=== PATIENT | female | born 1950 | race Caucasian/White ===

== ENCOUNTER → 2016-11-09 | Outpatient (CLI) | payer MEDICARE, OTHER ==
[~2016-11-09] MED LIST: ALPR.25T PO; AMOX1TAB10 PO; ASPI-586 PO; CATHETER FLUSH 10 ML SYR IV PRN; ESCT10T PO; ESTR10TA VG; HORMONE REPLACEMENT; METH4TAB PO
[2016-11-09 09:38] VITALS: BP 119/70
[2016-11-09 09:42] VITALS: BP 155/75
[2016-11-09 09:45] VITALS: BP 159/72
[2016-11-09 09:49] VITALS: BP 134/89
--- NOTE | 2016-11-10 08:59 | STRESS TEST ---
PROCEDURE PHYSICIAN: LEONARDO GAITAN DATE OF PROCEDURE: 11/09/2016 EXERCISE MYOVIEW STRESS TEST REPORT: REFERRING PHYSICIAN: Dr. Walton INDICATION FOR THE PROCEDURE: 1. Mitral regurgitation. 2. Left ventricular hypertrophy. BASELINE HEART RATE: 52 BASELINE BLOOD PRESSURE: 110/73 BASELINE EKG: Sinus rhythm with no ischemic changes. IN SUMMARY: The patient was injected with 10.76 mCi of technetium 99 Myoview and the resting images were obtained. Then the patient started exercising with a baseline heart rate, blood pressure and EKG mentioned above. At minute 5, the patient was injected with 31.9 mCi of technetium 99 Myoview. She was able to exercise for total of 6 minutes on standard Yfn protocol, achieving maximum heart rate of 137, which is 89% of maximum expected heart rate. With peak exercise level, EKG was showing [address] depression in 2, 3, aVF. Blood pressure was 165/85. During recovery, heart rate and blood pressure returned to baseline. EKG returned to baseline. The resting and stress images were reviewed and compared in the short axis, horizontal long axis, and vertical long axis views. Review of the images showed good radiotracer uptake with no significant ischemia or infarction on SPECT images. SSS is 0. TID value 1.05. On the gated images, the left ventricle appeared to be normal size with normal contractility. Calculated ejection fraction 61%. IN CONCLUSION: 1. Good exercise tolerance a total of 6 minutes on standard Yfn protocol. Total 7 METs achieving 89% of maximum expected heart rate. 2. Appropriate heart rate and blood pressure response to exercise, returned to baseline during recovery. 3. Nondiagnostic EKG changes with exercise, returned to baseline during recovery. 4. No ischemia or infarction on SPECT images. 5. Normal left ventricular size with normal contractility. Calculated ejection fraction 61%. Job ID: [id number] Dictated Date: 11/10/2016 08:10:09 Parking Enforcement Specialist Date: 11/10/2016 08:56:05 / barbara
== END ==
LOC: CARD 08:07
PROVIDERS: ATTEND Internal Medicine Cardiovascular Disease
DX: I51.7 Cardiomegaly (principal); I34.0 Nonrheumatic mitral (valve) insufficiency; Z82.3 Family history of stroke; Z82.49 Family history of ischemic heart disease and other diseases of the circulatory system
CPT/HCPCS: 78452; 93017

== ENCOUNTER 2017-01-07 15:47 | Emergency (ER) | payer MEDICARE, OTHER ==
[~2017-01-07] VITALS: Ht 172.7 cm; Wt 81.6 kg
[~2017-01-07 15:47] MED LIST changes: -ASPI-586 PO; -CATHETER FLUSH 10 ML SYR IV PRN
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
[2017-01-07] MEDS ORDERED: ASPI-586 PO (16:06)
[2017-01-07] MEDS ORDERED: TETANUS,DIPTH,PERTUSS P/F (BOOSTRIX) 0.5 ML VIAL IM ONE (16:45)
--- NOTE | 2017-01-07 17:17 | Diagnostic Imaging Report ---
PROCEDURE: CT head, face, and cervical spine without contrast. TECHNIQUE: Multiple contiguous axial images were obtained through the head, neck, and facial bones without the use of intravenous contrast. Sagittal and coronal reformations through the cervical spine and facial bones were also performed. INDICATION: Fall. Face injury. COMPARISON: None. FINDINGS: CT HEAD INCLUDING MAXILLOFACIAL: Soft tissue contusion/hematoma overlying the left maxilla. No fractures. No intracranial hemorrhage, mass effect, hydrocephalus or extra-axial fluid collections. No CT evidence of acute infarction. Mild generalized cerebral and cerebellar parenchymal volume loss is appropriate for age. Osseous structures are intact. Intracranial vascular calcifications. The visualized paranasal sinuses, mastoids and orbits are unremarkable. CT CERVICAL SPINE: Normal alignment. No fractures. Vertebral body heights are maintained. Mild scattered degenerative endplate changes and facet arthropathy. No evidence of high-grade spinal canal or neural foraminal narrowing. The visualized paravertebral soft tissues are unremarkable. IMPRESSION: No acute intracranial or cervical spine CT findings. Soft tissue hematoma overlying the left maxilla. No facial fractures. Dictated by: Dictated on workstation # [id number]
--- NOTE | 2017-01-07 17:30 | ED Fall/Injury ---
General Chief Complaint: Facial Problems Stated Complaint: FACE INJ Nursing Triage Note: PT STATES SHE TRIPPED AND FELL ON SIDEWALK INJURING L SIDE OF FACE. NO LOC. Source: patient Exam Limitations: no limitations History of Present Illness Time seen by provider: 16:20 Initial Comments Patient was walking on the sidewalk when she tripped and fell on her face onto concrete. She has significant abrasions and contusion to the left side of her face and scattered abrasions on her upper extremities. She denies any loss of consciousness or symptoms of concussion. She denies any neck pain. She takes aspirin 81 mg daily. There was no prodrome to her fall and she believes it was secondary to mechanical tripping. She denies any injury to her eye or affected vision. She is concerned about the possibility of glass in her facial wounds because her glasses did break and she removed some broken glass from her face. Occurred: just prior to arrival Allergies and Home Medications Allergies Coded Allergies: codeine (Verified Allergy, Unknown, 04/01/06) Uncoded Allergies: [id number] (E-MYCIN) (Allergy, Mild, 10/23/09) Home Medications Alprazolam 0.25 Mg Tablet 1 TAB PO PRN (Reported) Aspirin 81 Mg Tablet.dr 81 MG PO (Reported) Escitalopram Oxalate 10 Mg Tablet 0.5 EACH PO DAILY (Reported) Estradiol 10 Mcg Tablet 10 MCG VG UD (Reported) Constitutional: no symptoms reported Eyes: No Symptoms Reported Ears, Nose, Mouth, Throat: see HPI Respiratory: no symptoms reported Cardiovascular: no symptoms reported Gastrointestinal: no symptoms reported Genitourinary: no symptoms reported : No Musculoskeletal: no symptoms reported Skin: see HPI Psychiatric/Neurological: No Symptoms Reported Past Evtwhsr-Kwzazx-Wsfses Hx Patient Social History Alcohol Use: Rarely Uses Recreational Drug Use: No Smoking Status: Never a Smoker Recent Foreign Travel: No Contact w/Someone Who Travel: No Recent Infectious Disease Expo: No Recent Hopitalizations: No Immunizations Up To Date Tetanus Booster (TDap): More than 5yrs Date of Influenza Vaccine: Aug 21, 2013 Surgeries HX Surgeries: Yes Surgeries: Eye Surgery, Tonsillectomy Respiratory Hx Respiratory Disorders: No Cardiovascular Hx Cardiac Disorders: No Neurological Hx Neurological Disorders: No Gastrointestinal Hx Gastrointestinal Disorders: No Musculoskeletal Hx Musculoskeletal Disorders: No Endocrine Hx Endocrine Disorders: No HEENT HX ENT Disorders: No Cancer Hx Cancer: No Psychosocial Hx Psychiatric Problems: Yes Behavioral Health Disorders: Anxiety Integumentary HX Skin/Integumentary Disorder: No Physical Exam Vital Signs Vital Sign - Last 12Hours 01/07/17 15:59 Temp 97.1 Pulse 83 Resp 16 B/P 158/98 Pulse Ox 96 Capillary Refill : Less Than 3 Seconds General Appearance: WD/WN no apparent distress HEENT: PERRL/EOMI TMs normal pharynx normal other (there is contusion with swelling and abrasion to the left side of the face and beneath the nose. No dental injury identified. I appears unaffected. There is a shallow laceration around the inferior rim of the orbit. There is a vertical laceration on the mucosal surface of the left upper lip.) Neck: non-tender full range of motion supple normal inspection Cardiovascular: regular rate, rhythm no edema no murmur Respiratory: lungs clear normal breath sounds no respiratory distress no accessory muscle use Gastrointestinal: non tender soft Extremities: no pedal edema other (scattered abrasions over the upper extremities. No significant joint or bony pain or tenderness) Neurologic/Psychiatric: service clerk II-XII nml as tested no motor/sensory deficits alert normal mood/affect oriented x 3 Skin: normal color warm/dry other (see above) [place] Coma Score Best Eye Response: (4) Open Spontaneously Best Verbal Response: (5) Oriented Best Motor Response: (6) Obeys Commands [place] Total: 15 Progress/Results/Core Measures Results/Orders My Orders Orders-DAKOTA WOODS MD Ct Head/Face/Cervical Wo (01/07/17 16:33) Dipht,Pertuss(Acell),Tet Adult (Boostrix (01/07/17 16:45) Medications Given in ED Vital Signs/I&O Vital Sign - Last 12Hours 01/07/17 01/07/17 15:59 18:25 Temp 97.1 97.1 Pulse 83 83 Resp 16 16 B/P 158/98 Pulse Ox 96 96 Blood Pressure Mean: 118 Progress Note : Progress Note Patient was seen and examined. CT of the head, face, and cervical spine was ordered. No bony or intracranial injuries were identified. Patient was given a tetanus booster. Wounds were cleaned with water and Betasept. No foreign bodies were found in the facial bones. The shallow laceration on the left orbital rim was not amenable to approximation. The lip laceration did not require repair. We discussed dietary restrictions for the next few days to avoid particulate matter in the wound. Wounds were dressed with sterile gauze and antibiotic ointment prior to dismissal. Diagnostic Imaging Diagonstic Imaging: CT Plain Films/CT/US/NM/MRI: facial bones, c-spine, head Comments CT head, face, and cervical spine viewed by me and report reviewed. See report below: NAME: MARIELA LONG [facility] REC#: [id number] PT STATUS: REG ER : 1950 PHYSICIAN: DAKOTA WOODS MD ADMIT DATE: 01/07/17/ER Draft Date of Exam:01/07/17 CT HEAD/FACE/CERVICAL WO PROCEDURE: CT head, face, and cervical spine without contrast. TECHNIQUE: Multiple contiguous axial images were obtained through the head, neck, and facial bones without the use of intravenous contrast. Sagittal and coronal reformations through the cervical spine and facial bones were also performed. INDICATION: Fall. Face injury. COMPARISON: None. FINDINGS: CT HEAD INCLUDING MAXILLOFACIAL: Soft tissue contusion/hematoma overlying the left maxilla. No fractures. No intracranial hemorrhage, mass effect, hydrocephalus or extra-axial fluid collections. No CT evidence of acute infarction. Mild generalized cerebral and cerebellar parenchymal volume loss is appropriate for age. Osseous structures are intact. Intracranial vascular calcifications. The visualized paranasal sinuses, mastoids and orbits are unremarkable. CT CERVICAL SPINE: Normal alignment. No fractures. Vertebral body heights are maintained. Mild scattered degenerative endplate changes and facet arthropathy. No evidence of high-grade spinal canal or neural foraminal narrowing. The visualized paravertebral soft tissues are unremarkable. IMPRESSION: No acute intracranial or cervical spine CT findings. Soft tissue hematoma overlying the left maxilla. No facial fractures. Dictated on workstation # [id number] Dict: 01/07/17 1701 Trans: 01/07/171715 [facility] [id number] Interpreted by: REE SAEED MD Departure Impression Impression: Primary Impression: Facial contusion Qualified Code: S00.83XA - Contusion of other part of head, initial encounter Additional Impressions: Multiple abrasions Fall on same level from tripping as cause of accidental injury Lip laceration Qualified Code: S01.511A - Laceration without foreign body of lip, initial encounter Disposition: 01 HOME, SELF-CARE Condition: Improved Departure-Patient Inst. Decision time for Depature: 17:29 Referrals: ELIAS GANT MD (PCP/Family) Primary Care Physician Patient Instructions: Contusion (DC), Skin Abrasions Add. Discharge Instructions: Monitor your wounds for signs of infection including puslike drainage, increasing redness, increasing swelling, or fever. You may apply antibiotic ointment if desired. Return to the emergency room if you have any problems or concerns. All discharge instructions reviewed with patient and/or family. Voiced understanding. DAKOTA WOODS MD Jan 07, 2017 17:30
[2017-01-07 18:25] VITALS: BP 158/98
== END 2017-01-07 18:25 | disposition home or self-care (01) ==
LOC: EDUNIT# 15:47 → ER 15:48
DX: S00.81XA Abrasion of other part of head, initial encounter (principal); Z23 Encounter for immunization; W01.0XXA Fall on same level from slipping, tripping and stumbling without subsequent striking against object, initial encounter; Y92.480 Sidewalk as the place of occurrence of the external cause; Y99.8 Other external cause status; Z79.82 Long term (current) use of aspirin; Z79.899 Other long term (current) drug therapy
CPT/HCPCS: 70450; 70486; 72125; 90471; 90715; 99282

== ENCOUNTER → 2017-03-12 | Outpatient (CLI) | payer MEDICARE, OTHER ==
[~2017-03-12] MED LIST changes: +ASPI-586 PO
--- NOTE | 2017-03-15 18:02 | Diagnostic Imaging Report ---
Bilateral screening mammogram. The current study was also evaluated with a Computer Aided Detection (CAD) system. INDICATION: Screening. No current complaints stated on the questionnaire. COMPARISON: 06/28/2015. FINDINGS: The breasts are composed of heterogeneously dense parenchyma which may decrease mammographic sensitivity. There are scattered benign-appearing calcifications seen. Allowing for technique and positional differences, no suspicious change is seen. IMPRESSION: No significant change. ACR BI-RADS Category 2: Benign findings. Result letter will be mailed to the patient. Note: At least 10% of breast cancer is not imaged by mammography. Dictated by: Dictated on workstation # [id number]
== END ==
LOC: RAD 10:23
PROVIDERS: ATTEND Family Medicine
DX: Z12.31 Encounter for screening mammogram for malignant neoplasm of breast (principal)
CPT/HCPCS: 77067

== ENCOUNTER → 2018-03-14 | Outpatient (CLI) | payer MEDICARE, OTHER ==
[~2018-03-14] MED LIST changes: +IBUP-30 PO; +TRAM50TA2 PO
--- NOTE | 2018-03-14 11:14 | Diagnostic Imaging Report ---
INDICATION: Routine screening. COMPARISON: 03/12/2017 and 04/02/2014. TECHNIQUE: 2D and 3D bilateral screening mammography was performed CAD. FINDINGS: There are scattered fibroglandular densities bilaterally. There are benign calcifications bilaterally. A tiny circumscribed nodular density in the outer right breast appears benign. No spiculated mass or malignant appearing microcalcifications are seen. The axillae are unremarkable. IMPRESSION: No mammographic features suspicious for malignancy are identified. ACR BI-RADS Category 2: Benign findings. Result letter will be mailed to the patient. Note: At least 10% of breast cancer is not imaged by mammography. Dictated by: Dictated on workstation # [id number]
== END ==
LOC: RAD 08:44
PROVIDERS: ATTEND Nurse Practitioner Family
DX: Z12.31 Encounter for screening mammogram for malignant neoplasm of breast (principal)
CPT/HCPCS: 77067

== ENCOUNTER → 2018-03-19 | Outpatient (CLI) | payer MEDICARE, OTHER ==
--- NOTE | 2018-03-19 13:29 | Diagnostic Imaging Report ---
PROCEDURE: MRI lumbar spine. TECHNIQUE: Multiplanar, multisequence MRI of the lumbar spine was performed without contrast. INDICATION: Low back pain. Sacroiliitis. COMPARISON: Lumbar spine radiographs 02/16/2018. FINDINGS: There are 5 lumbar type vertebral bodies. Normal alignment. Vertebral body heights are preserved. Normal bone marrow signal. No abnormal signal in the conus which terminates at L1. Normal morphology of the cauda equina. The visualized abdominal and pelvic contents are unremarkable. At L4-L5, there is a left subarticular disc extrusion with inferior migration that obliterates the left lateral recess. The intervertebral discs are otherwise well preserved. There is no other spinal canal, lateral recess or neural foraminal narrowing in the lumbar spine. Mild facet arthropathy at L4-S1 bilaterally. IMPRESSION: Disc extrusion with inferior migration at L4-L5 would account for a left L5 radiculopathy. No other substantial spondylotic change or neural impingement in the lumbar spine. No acute osseous findings. Dictated by: Dictated on workstation # [id number]
== END ==
LOC: RAD 11:19
PROVIDERS: ATTEND Pain Medicine Interventional Pain Medicine
DX: M51.16 Intervertebral disc disorders with radiculopathy, lumbar region (principal); M46.1 Sacroiliitis, not elsewhere classified
CPT/HCPCS: 72148

== ENCOUNTER 2018-03-28 05:36 | Outpatient (CLI) | payer MEDICARE, OTHER ==
[~2018-03-28] VITALS: Ht 172.7 cm; Wt 81.6 kg
[~2018-03-28 05:36] MED LIST changes: -IBUP-30 PO; -TRAM50TA2 PO
[2018-03-28] MEDS ORDERED: IBUP-30 PO (10:45)
[2018-03-30] MEDS ORDERED: TRAM50TA2 PO (13:51)
== END 2018-03-28 10:56 ==
LOC: PREOP 05:36
PROVIDERS: ATTEND Surgery
DX: Z01.818 Encounter for other preprocedural examination (principal); L98.9 Disorder of the skin and subcutaneous tissue, unspecified

== ENCOUNTER 2018-03-30 09:55 | Day surgery (SDC) | payer MEDICARE, OTHER ==
[~2018-03-30] VITALS: Ht 172.7 cm; Wt 81.6 kg
[~2018-03-30 09:55] MED LIST changes: +IBUP-30 PO
--- OUTSIDE RECORDS SUMMARY | 2018-03-30 10:02 | XMS REPORT | CCD ---
Author Author Alina Walton Organization Alina Walton MD, [facility] Address [address] [place] [address] Phone Care Team Providers Care Senior Systems Software Engineer Name Role Phone PP Unavailable CCM Unavailable Summary Purpose Interface Exchange Insurance Providers Payer name Policy type / Coverage type Covered libertarian ID Effective Begin Date Effective End Date WPS Medicare Part B [id number] Unknown [employer] [id number] 2016 Unknown Family history Runs in the family Diagnosis Age At Onset Heart disease Unknown Social History Social History Element Codes Description Effective Dates Employment Unknown Retired used to teach literature classes at [employer] 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 Marital status Unknown 02/26/2015 Living arrangements Unknown House 02/26/[address]: [id number] Has never smoked or chewed tobacco 02/26/2015 Allergies, Adverse Reactions, Alerts Allergies, Adverse Reactions, Alerts data not found Past Medical History Illness Codes Condition Status Onset Date Resolved Date Acute laryngopharyngitis ICD-9: 465.0 ICD-10: J06.0 Active 12/29/2016 Unknown Other allergic rhinitis ICD-9: 477.8 ICD-10: J30.89 Active 12/29/2016 Unknown Actinic keratosis ICD- 9: 702.0 ICD-10: L57.0 Active 09/02/2017 Unknown Generalized anxiety disorder ICD-9: 308.0 ICD-10: F41.1 Active 07/30/2016 Unknown Allergic rhinitis due to pollen ICD-9: 477.0 ICD-10: J30.1 Active 01/26/2016 Unknown Localized swelling, mass and lump, head ICD-9: 784.2 ICD-10: R22.0 Active 01/21/2017 Unknown Cardiac murmur, unspecified ICD-9: 785.2 ICD-10: R01.1 Active 07/30/2016 Unknown Rash and other nonspecific skin eruption ICD-9: 782.1 ICD-10: R21 Active 07/30/2016 Unknown Ingrowing nail ICD-9: 703.0 ICD-10: L60.0 Active 01/26/2016 Unknown Other seborrheic keratosis ICD-9: 702.19 ICD-10: L82.1 Active 08/11/2015 Unknown Sebaceous cyst ICD-9: 706.2 ICD-10: L72.3 Active 08/11/2015 Unknown EDEMA ICD-9: 782.3 Active 06/23/2015 Unknown Rash ICD-9: 782.1 Active 06/23/2015 Unknown PREVENTIVE PHYSICAL EXAM ICD-9: V70.0 Active 02/25/2015 Unknown Problems Condition Codes Effective Dates Condition Status Acute laryngopharyngitis ICD-9: 465.0 ICD-10: J06.0 12/29/2016 Active Other allergic rhinitis ICD-9: 477.8 ICD-10: J30.89 12/29/2016 Active Actinic keratosis ICD- 9: 702.0 ICD-10: L57.0 09/02/2017 Active Generalized anxiety disorder ICD-9: 308.0 ICD-10: F41.1 07/30/2016 Active Allergic rhinitis due to pollen ICD-9: 477.0 ICD-10: J30.1 01/26/2016 Active Localized swelling, mass and lump, head ICD-9: 784.2 ICD-10: R22.0 01/21/2017 Active Cardiac murmur, unspecified ICD-9: 785.2 ICD-10: R01.1 07/30/2016 Active Rash and other nonspecific skin eruption ICD-9: 782.1 ICD-10: R21 07/30/2016 Active Ingrowing nail ICD-9: 703.0 ICD-10: L60.0 01/26/2016 Active Other seborrheic keratosis ICD-9: 702.19 ICD-10: L82.1 08/11/2015 Active Sebaceous cyst ICD-9: 706.2 ICD-10: L72.3 08/11/2015 Active EDEMA ICD-9: 782.3 06/23/2015 Active Rash ICD-9: 782.1 06/23/2015 Active PREVENTIVE PHYSICAL EXAM ICD-9: V70.0 02/25/2015 Active Medications Medication Codes Instructions Start Date Stop Date Status Fill Instructions Vagifem 10 mcg vaginal tablet RxNorm: 246723 Tablet(s) INSERT ONE TABLET VAGINALLY EVERY 3 TO 4 DAYS 06/18/2017 Inactive Vagifem 10 mcg vaginal tablet RxNorm: 556661 INSERT ONE TABLET VAGINALLY EVERY 3 TO 4 DAYS 06/18/2017 06/17/2017 Inactive mometasone 0.1 % topical cream RxNorm: 529477 1 Application TOP 03/04/2017 07/01/2017 Inactive APPLY THIN AMOUNT TO RASH ON ARMS escitalopram 10 mg tablet RxNorm: 458437 1/2 Tablet(s) PO daily 03/04/2017 09/01/2017 Inactive escitalopram 10 mg tablet RxNorm: 428247 1/2 Tablet(s) PO daily 03/04/2017 03/03/2017 Inactive Sudafed 12 Hour 120 mg tablet,extended release RxNorm: 2693833 TAKE ONE TABLET BY MOUTH TWICE A DAY NEEDED 02/24/201704/2017 Inactive Sudafed 12 Hour 120 mg tablet,extended release RxNorm: 0679522 1 Tablet(s) PO BID as needed 02/22/2017 02/23/2017 Inactive amoxicillin 500 mg tablet RxNorm: 829891 1 Tablet(s) PO TID 04/201701/04/2017 Inactive Sudafed 12 Hour 120 mg tablet,extended release RxNorm: 1507711 1 Tablet(s) PO BID as needed 12/29/2016 02/21/2017 Inactive medroxyprogesterone 10 mg tablet RxNorm: 7387830 TAKE ONE TABLET BY MOUTH DAILY 09/28/2016 11/06/2016 Inactive escitalopram 10 mg tablet RxNorm: 997176 1/2 Tablet(s) PO daily 07/31/2016 01/14/2017 Inactive Diflucan 150 mg tablet RxNorm: 592036 1 Tablet(s) PO daily 04/201608/06/2016 Inactive medroxyprogesterone 10 mg tablet RxNorm: 8190057 1 Tablet(s) PO daily 06/26/2016 07/05/2016 Inactive Vagifem 10 mcg vaginal tablet RxNorm: 400224 1 Tablet(s) VAG (Q 3-4 DAYS) 03/19/2016 06/17/2017 Inactive escitalopram 10 mg tablet RxNorm: 664553 1 Tablet(s) PO daily 01/27/2016 07/12/2016 Inactive medroxyprogesterone 10 mg tablet RxNorm: 4170826 1 Tablet(s) PO daily 01/27/2016 02/05/2016 Inactive Xanax 0.25 mg tablet RxNorm: 064616 1-2 Tablet(s) PO Q6 as needed 01/27/2016 09/01/2017 Inactive escitalopram 10 mg tablet RxNorm: 219137 1 Tablet(s) PO daily 01/27/2016 01/26/2016 Inactive Vagifem 10 mcg vaginal tablet RxNorm: 572432 1 Tablet(s) VAG q 3-4 DAYS 12/25/2015 03/18/2016 Inactive pt needs to make an appt mometasone 0.1 % topical cream RxNorm: 664510 1 Application TOP 06/24/2015 08/22/2015 Inactive APPLY THIN AMOUNT TO RASH ON ARMS ketoconazole 2 % topical cream RxNorm: 308013 1 Application TOP BID 06/24/2015 07/23/2015 Inactive Lexapro 5 mg tablet RxNorm: 002754 1 Tablet(s) PO daily 201401/26/2016 Inactive Vagifem 10 mcg vaginal tablet RxNorm: 012161 1 Tablet(s) VAG q 6 DAYS 02/26/2015 12/24/2015 Inactive Culturelle 10 billion cell capsule RxNorm: 442959 1 Capsule(s) PO daily No Start Date Active Fish Oil 1,000 mg capsule RxNorm: 1 Capsule(s) PO BID No Start Date Active Vagifem 10 mcg vaginal tablet RxNorm: 930882 1 Tablet(s) VAG q 5 DAYS No Start Date 02/25/2015 Inactive Xanax 0.25 mg tablet RxNorm: 487716 1 Tablet(s) PO as needed No Start Date 01/26/2016 Inactive Multi Vitamin oral RxNorm: oral No Start Date 07/30/2016 Inactive aspirin 81 mg chewable tablet RxNorm: 388189 Tablet(s) PO No Start Date 09/01/2017 Inactive premarin 0.5% Vaginal cream RxNorm: VAG No Start Date 02/25/2015 Inactive Detrol LA 4 mg capsule,extended release RxNorm: 555320 1 Capsule(s) PO daily No Start Date 02/25/2015 Inactive hydrocodone 5 mg-acetaminophen 325 mg tablet RxNorm: 760133 1 Tablet(s) PO Q4-6H as needed No Start Date 07/30/2016 Inactive Provera 10 mg tablet RxNorm: 2301143 Tablet(s) PO No Start Date 09/01/2017 Inactive Lexapro 20 mg tablet RxNorm: 722675 1 Tablet(s) PO daily No Start Date 02/25/2015 Inactive cyclobenzaprine 10 mg tablet RxNorm: 714491 1 Tablet(s) PO as needed No Start Date 07/30/2016 Inactive Medication Administered No Medication Administered data Immunizations No Immunization data Assessments Condition Codes Effective Dates Other allergic rhinitis ICD-10: J30.89 ICD-9: 477.8 11/17/2017 Acute laryngopharyngitis ICD-10: J06.0 ICD-9: 465.0 11/17/2017 Actinic keratosis ICD-10: L57.0 ICD-9: 702.0 10/08/2017 Generalized anxiety disorder ICD-10: F41.1 ICD-9: 308.0 09/02/2017 Allergic rhinitis due to pollen ICD-10: J30.1 ICD-9: 477.0 03/04/2017 Localized swelling, mass and lump, head ICD-10: R22.0 ICD-9: 784.2 01/21/2017 Cardiac murmur, unspecified ICD-10: R01.1 ICD-9: 785.2 07/31/2016 Rash and other nonspecific skin eruption ICD-10: R21 ICD-9: 782.1 07/31/2016 Ingrowing nail ICD-10: L60.0 ICD-9: 703.0 01/27/2016 Other seborrheic keratosis ICD-10: L82.1 ICD-9: 702.19 08/12/2015 Sebaceous cyst ICD-10: L72.3 ICD-9: 706.2 08/12/2015 EDEMA ICD-9: 782.3 06/24/2015 Rash ICD-9: 782.1 06/24/2015 PREVENTIVE PHYSICAL EXAM ICD-9: V70.0 02/2015 Reason For Visit Reason For Visit Effective Dates Notes chest tightness 11/17/2017 skin lesion 10/08/2017 hand pain 09/02/2017 cough 03/04/2017 Hospital Follow Up 01/21/2017 sinus congestion 12/29/2016 rash 07/31/2016 ingrown toenail 01/27/2016 right cyst 08/12/2015 edema 06/24/2015 ~generic 02/26/2015 Results Observation Observation Code Item Item Code Result Date C A/B FLU 6627039 Influenza A Scr Negative 11/17/2017 C A/B FLU 0447170 Influenza B Scr Negative 11/17/2017 C A/B FLU 5797085 Influenza Intrp B AG: PRID:PT:NOSE:NOM:IF See Footnote 11/17/2017 Lipid Ord30 CHOL 225 mg/dL 08/03/2016 Lipid Ord30 HDL 63.0 mg/dl 08/03/2016 Lipid Ord30 TRIG 161 mg/dL 08/03/2016 Lipid Ord30 LDL 130 mg/dL 08/03/2016 Lipid Ord30 C/HDL 3.6 Ratio 08/03/2016 Cbc With Differential Ord2 WBC 5.41 K/ul 08/03/2016 Cbc With Differential Ord2 RBC 4.60 M/ul 08/03/2016 Cbc With Differential Ord2 HGB 14.0 g/dl 08/03/2016 Cbc With Differential Ord2 Neut% 47.3 % 08/03/2016 Cbc With Differential Ord2 HCT 41.4 % 08/03/2016 Cbc With Differential Ord2 MCV 90.0 fl 08/03/2016 Cbc With Differential Ord2 Lymph% 35.9 % 08/03/2016 Cbc With Differential Ord2 MCH 30.4 pg 08/03/2016 Cbc With Differential Ord2 [place]% 6.7 % 08/03/2016 Cbc With Differential Ord2 MCHC 33.8 pg 08/03/2016 Cbc With Differential Ord2 Eos% 9.4 % 08/03/2016 Cbc With Differential Ord2 PLT 206 K/ul 08/03/2016 Cbc With Differential Ord2 Baso% 0.7 % 08/03/2016 Cbc With Differential Ord2 RDW 12.6 % 08/03/2016 Cbc With Differential Ord2 Neut ABS# 2.56 K/ul 08/03/2016 Cbc With Differential Ord2 Lymph ABS# 1.94 K/ul 08/03/2016 Cbc With Differential Ord2 [place] ABS# 0.4 K/ul 08/03/2016 Cbc With Differential Ord2 Eos ABS# 0.5 K/ul 08/03/2016 Cbc With Differential Ord2 Baso ABS# 0.0 K/ul 08/03/2016 Comp Metabolic Cdq963 NA 139 mEq/L 08/03/2016 Comp Metabolic Yed092 K 3.7 mEq/L 08/03/2016 Comp Metabolic Ney409 CL 105 mEq/L 08/03/2016 Comp Metabolic Szb561 CO2 26.0 mEq/L 08/03/2016 Comp Metabolic Pyy280 ANION GAP 12 08/03/2016 Comp Metabolic Glf161 GLUCOSE 90 mg/dL 08/03/2016 Comp Metabolic Tbd993 Creat 0.8 mg/dL 08/03/2016 Comp Metabolic Fch060 eGFR 76 ml/min/1.73m2 08/03/2016 Comp Metabolic Tng369 BUN 14 mg/dL 08/03/2016 Comp Metabolic Qbm568 B/C Ratio 17.5 Ratio 08/03/2016 Comp Metabolic Zbc409 CALCIUM 8.9 mg/dL 08/03/2016 Comp Metabolic Etu978 ALK PHOS 69 U/L 08/03/2016 Comp Metabolic Nrq592 AST(SGOT) 17 U/L 08/03/2016 Comp Metabolic Nsh299 ALT(SGPT) 19 U/L 08/03/2016 Comp Metabolic Ozu614 BILI T 0.5 mg/dL 08/03/2016 Comp Metabolic Cfs557 ALBUMIN 4.2 g/dL 08/03/2016 Comp Metabolic Fkb718 TPRO 6.5 g/dL 08/03/2016 Comp Metabolic Jxz860 GLOB 2.3 g/dL 08/03/2016 Comp Metabolic Rxi394 A/G Ratio 1.8 Ratio 08/03/2016 Comp Metabolic Mmz663 Osmo 278 mOsmo 08/03/2016 Tsh Ord6 hTSH II 3.08 uIU/mL 08/03/2016 Review of Systems System Result Effective Dates Constitutional recent illness 11/17/2017 Constitutional No chills 11/17/2017 Constitutional diaphoresis 11/17/2017 Constitutional fever 11/17/2017 Eyes No eye erythema 11/17/2017 Ears/Nose/Throat/Neck nasal allergies Ears/Nose/Throat/Neck nasal discharge Ears/Nose/Throat/Neck postnasal drip Ears/Nose/Throat/Neck sinus congestion Ears/Nose/Throat/Neck sore throat 2017 Cardiovascular No chest pain/pressure Cardiovascular No dyspnea 11/17/2017 Respiratory No chest congestion 2017 Respiratory cough 11/17/2017 Respiratory No dyspnea 11/17/2017 Gastrointestinal No constipation 2017 Gastrointestinal No diarrhea 11/17/2017 Gastrointestinal No nausea 11/17/2017 Gastrointestinal No vomiting 11/17/2017 Dermatologic No rash 11/17/2017 Neurologic No alteration of consciousness 11/17/2017 Neurologic No mental status change 2017 Constitutional No recent illness 2016 Dermatologic actinic keratosis 2016 Constitutional No fatigue 09/02/2017 Constitutional No fever 09/02/2017 Constitutional No insomnia 09/02/2017 Eyes No eye discharge 09/02/2017 Eyes No eye erythema 09/02/2017 Ears/Nose/Throat/Neck No dizziness 2016 Ears/Nose/Throat/Neck No headache 2016 Ears/Nose/Throat/Neck nasal allergies 06/2017 Ears/Nose/Throat/Neck nasal discharge 06/2017 Cardiovascular No chest pain/pressure 06/2017 Cardiovascular No edema 09/02/2017 Cardiovascular No near-syncope/dizziness 09/02/2017 Cardiovascular No syncope 09/02/2017 Respiratory No productive sputum 2016 Respiratory No chest congestion 2016 Respiratory No chest tightness 2016 Respiratory No dyspnea 09/02/2017 Gastrointestinal No abdominal pain 2016 Gastrointestinal No constipation 2016 Gastrointestinal No diarrhea 09/02/2017 Genitourinary/Nephrology No breast complaint 09/02/2017 Genitourinary/Nephrology No dysuria 09/02 Genitourinary/Nephrology No hematuria 06/2017 Genitourinary/Nephrology No urinary urgency 09/02/2017 Genitourinary/Nephrology No vaginal discharge 09/02/2017 Musculoskeletal No joint complaint 2016 Dermatologic No sores 09/02/2017 Neurologic No alteration of consciousness 09/02/2017 Psychiatric anxiety 09/02/2017 Psychiatric depression 09/02/2017 Constitutional No fatigue 03/04/2017 Constitutional No fever 03/04/2017 Constitutional No insomnia 03/04/2017 Eyes No eye discharge 03/04/2017 Eyes No eye erythema 03/04/2017 Ears/Nose/Throat/Neck No dizziness 2016 Ears/Nose/Throat/Neck No headache 2016 Ears/Nose/Throat/Neck nasal allergies 08/2017 Ears/Nose/Throat/Neck nasal discharge 08/2017 Cardiovascular No chest pain/pressure 08/2017 Cardiovascular No edema 03/04/2017 Cardiovascular No near-syncope/dizziness 03/04/2017 Cardiovascular No syncope 03/04/2017 Respiratory No productive sputum 2016 Respiratory No chest congestion 2016 Respiratory No chest tightness 2016 Respiratory No dyspnea 03/04/2017 Gastrointestinal No abdominal pain 2016 Gastrointestinal No constipation 2016 Gastrointestinal No diarrhea 03/04/2017 Genitourinary/Nephrology No breast complaint 03/04/2017 Genitourinary/Nephrology No dysuria 03/04 Genitourinary/Nephrology No hematuria 08/2017 Genitourinary/Nephrology No urinary urgency 03/04/2017 Genitourinary/Nephrology No vaginal discharge 03/04/2017 Musculoskeletal No joint complaint 2016 Dermatologic No rash 03/04/2017 Dermatologic No sores 03/04/2017 Neurologic No alteration of consciousness 03/04/2017 Psychiatric anxiety 03/04/2017 Psychiatric depression 03/04/2017 Constitutional recent illness 03/04/2017 Constitutional No diaphoresis 03/04/2017 Eyes No blindness 03/04/2017 Ears/Nose/Throat/Neck postnasal drip 08/2017 Ears/Nose/Throat/Neck sinus congestion Gastrointestinal No nausea 03/04/2017 Gastrointestinal No vomiting 03/04/2017 Neurologic No mental status change 2016 Constitutional recent illness 01/21/2017 Constitutional No anorexia 01/21/2017 Constitutional No night sweats 2016 Constitutional No chills 01/21/2017 Constitutional No diaphoresis 01/21/2017 Constitutional No fatigue 01/21/2017 Constitutional No fever 01/21/2017 Constitutional No insomnia 01/21/2017 Constitutional No malaise 01/21/2017 Constitutional No weight loss 01/21/2017 Constitutional No weight gain 01/21/2017 Constitutional No obesity 01/21/2017 Eyes No eye pain 01/21/2017 Eyes No vision change 01/21/2017 Ears/Nose/Throat/Neck No dizziness 2016 Ears/Nose/Throat/Neck No headache 2016 Cardiovascular No fatigue 01/21/2017 Cardiovascular No chest pain/pressure Cardiovascular No dyspnea 01/21/2017 Cardiovascular No palpitations 2016 Respiratory No chest congestion 2016 Respiratory No chest tightness 2016 Respiratory No cigarette smoking 2016 Respiratory No cough 01/21/2017 Gastrointestinal No abdominal pain 2016 Gastrointestinal No nausea 01/21/2017 Gastrointestinal No vomiting 01/21/2017 Genitourinary/Nephrology No anuria/oliguria 01/21/2017 Genitourinary/Nephrology No dysuria 01/21 Musculoskeletal No stiffness 01/21/2017 Musculoskeletal No swelling 01/21/2017 Musculoskeletal No arthralgia(s) 2016 Musculoskeletal bone pain 01/21/2017 Dermatologic No rash 01/21/2017 Dermatologic sores 01/21/2017 Neurologic No alteration of consciousness 01/21/2017 Neurologic No dizziness 01/21/2017 Neurologic No memory loss 01/21/2017 Neurologic No mental status change 2016 Psychiatric anxiety 01/21/2017 Psychiatric depression 01/21/2017 Hematologic/Lymphatic No abnormal ecchymoses 01/21/2017 Hematologic/Lymphatic No abnormal bleeding and bruising 01/21/2017 Endocrine No sweating 01/21/2017 Endocrine No weakness 01/21/2017 Constitutional recent illness 12/29/2016 Constitutional chills 12/29/2016 Constitutional No diaphoresis 12/29/2016 Eyes No eye erythema 12/29/2016 Ears/Nose/Throat/Neck nasal allergies 04/2017 Ears/Nose/Throat/Neck nasal discharge 04/2017 Ears/Nose/Throat/Neck postnasal drip 04/2017 Ears/Nose/Throat/Neck sinus congestion Ears/Nose/Throat/Neck sore throat 2016 Cardiovascular No chest pain/pressure 04/2017 Cardiovascular No dyspnea 12/29/2016 Respiratory cough 12/29/2016 Respiratory No dyspnea 12/29/2016 Gastrointestinal No constipation 2016 Gastrointestinal No diarrhea 12/29/2016 Gastrointestinal No nausea 12/29/2016 Gastrointestinal No vomiting 12/29/2016 Dermatologic No rash 12/29/2016 Neurologic No alteration of consciousness 12/29/2016 Neurologic No mental status change 2016 Respiratory No chest congestion 2016 Constitutional No fatigue 07/31/2016 Constitutional No fever 07/31/2016 Constitutional No insomnia 07/31/2016 Eyes No eye discharge 07/31/2016 Eyes No eye erythema 07/31/2016 Ears/Nose/Throat/Neck No headache 2015 Cardiovascular No chest pain/pressure 04/2016 Cardiovascular No edema 07/31/2016 Cardiovascular No near-syncope/dizziness 07/31/2016 Cardiovascular No syncope 07/31/2016 Respiratory No productive sputum 2015 Respiratory No chest congestion 2015 Respiratory No chest tightness 2015 Respiratory cough 07/31/2016 Respiratory No dyspnea 07/31/2016 Gastrointestinal No abdominal pain 2015 Gastrointestinal No constipation 2015 Gastrointestinal No diarrhea 07/31/2016 Genitourinary/Nephrology No breast complaint 07/31/2016 Genitourinary/Nephrology No dysuria 07/31 Genitourinary/Nephrology No hematuria 04/2016 Genitourinary/Nephrology No urinary urgency 07/31/2016 Genitourinary/Nephrology No vaginal discharge 07/31/2016 Musculoskeletal No joint complaint 2015 Dermatologic rash 07/31/2016 Dermatologic No sores 07/31/2016 Neurologic No alteration of consciousness 07/31/2016 Psychiatric anxiety 07/31/2016 Psychiatric depression 07/31/2016 Ears/Nose/Throat/Neck No dizziness 2015 Ears/Nose/Throat/Neck nasal allergies 04/2016 Ears/Nose/Throat/Neck nasal discharge 04/2016 Constitutional No recent illness 2015 Constitutional No anorexia 01/27/2016 Constitutional No night sweats 2015 Constitutional No chills 01/27/2016 Constitutional No diaphoresis 01/27/2016 Constitutional No fatigue 01/27/2016 Constitutional No fever 01/27/2016 Constitutional No insomnia 01/27/2016 Constitutional No malaise 01/27/2016 Constitutional No weight loss 01/27/2016 Constitutional No weight gain 01/27/2016 Eyes No eye discharge 01/27/2016 Eyes No eye erythema 01/27/2016 Ears/Nose/Throat/Neck No dizziness 2015 Ears/Nose/Throat/Neck No headache 2015 Ears/Nose/Throat/Neck nasal allergies 01/2016 Ears/Nose/Throat/Neck No nasal discharge 01/27/2016 Cardiovascular No chest pain/pressure 01/2016 Cardiovascular No dyspnea 01/27/2016 Cardiovascular No edema 01/27/2016 Respiratory No cough 01/27/2016 Gastrointestinal No abdominal pain 2015 Gastrointestinal No constipation 2015 Gastrointestinal No diarrhea 01/27/2016 Genitourinary/Nephrology No dysuria 01/26 Musculoskeletal No joint complaint 2015 Dermatologic No rash 01/27/2016 Neurologic No alteration of consciousness 01/27/2016 Psychiatric anxiety 01/27/2016 Constitutional No recent illness 2014 Constitutional No fatigue 08/12/2015 Constitutional No fever 08/12/2015 Cardiovascular No dyspnea 08/12/2015 Cardiovascular No fatigue 08/12/2015 Respiratory No cough 08/12/2015 Respiratory No chest tightness 2014 Dermatologic sores 08/12/2015 Constitutional No recent illness 2014 Constitutional No anorexia 06/24/2015 Constitutional No night sweats 2014 Constitutional No chills 06/24/2015 Constitutional No diaphoresis 06/24/2015 Constitutional No fatigue 06/24/2015 Constitutional No fever 06/24/2015 Constitutional No malaise 06/24/2015 Constitutional No insomnia 06/24/2015 Constitutional No weight loss 06/24/2015 Constitutional No weight gain 06/24/2015 Cardiovascular No chest pain/pressure Cardiovascular edema 06/24/2015 Respiratory No productive sputum 2014 Respiratory No cough 06/24/2015 Eyes No eye discharge 06/24/2015 Eyes No eye erythema 06/24/2015 Ears/Nose/Throat/Neck No nasal discharge 06/24/2015 Gastrointestinal No abdominal pain 2014 Gastrointestinal No constipation 2014 Gastrointestinal No diarrhea 06/24/2015 Genitourinary/Nephrology No dysuria 06/24 Musculoskeletal joint complaint 2014 Dermatologic rash 06/24/2015 Neurologic No alteration of consciousness 06/24/2015 Constitutional No fatigue 02/26/2015 Constitutional No fever 02/26/2015 Constitutional No insomnia 02/26/2015 Eyes No eye discharge 02/26/2015 Eyes No eye erythema 02/26/2015 Ears/Nose/Throat/Neck No headache 2014 Cardiovascular No chest pain/pressure 02/2015 Cardiovascular No edema 02/26/2015 Cardiovascular No near-syncope/dizziness 02/26/2015 Cardiovascular No syncope 02/26/2015 Respiratory No productive sputum 2014 Respiratory No chest congestion 2014 Respiratory No chest tightness 2014 Respiratory No cough 02/26/2015 Respiratory No dyspnea 02/26/2015 Gastrointestinal No abdominal pain 2014 Gastrointestinal No constipation 2014 Gastrointestinal No diarrhea 02/26/2015 Genitourinary/Nephrology No breast complaint 02/26/2015 Genitourinary/Nephrology No dysuria 02/26 Genitourinary/Nephrology No hematuria 02/2015 Genitourinary/Nephrology No urinary urgency 02/26/2015 Genitourinary/Nephrology No vaginal discharge 02/26/2015 Musculoskeletal No joint complaint 2014 Neurologic No alteration of consciousness 02/26/2015 Psychiatric anxiety 02/26/2015 Psychiatric depression 02/26/2015 Dermatologic No rash 02/26/2015 Dermatologic No sores 02/26/2015 Musculoskeletal back pain 02/26/2015 Physical Exam Exam Name System Name Item Name Status Result Effective Dates Notes Full Exam - ENT Constitutional general appearance Overall: well nourished 11/17/2017 None Full Exam - ENT Constitutional general appearance Overall: well developed 11/17/2017 None Full Exam - ENT Constitutional general appearance Overall: in no acute distress 11/17/2017 None Full Exam - ENT Ears/Nose/Throat otoscopic exam Overall: external auditory canals normal 11/17/2017 None Full Exam - ENT Ears/Nose/Throat otoscopic exam Left tympanic membrane: air -fluid level 11/17/2017 None Full Exam - ENT Ears/Nose/Throat otoscopic exam Right tympanic membrane: air-fluid level 11/17/2017 None Full Exam - ENT Ears/Nose/Throat lips/ teeth/gingiva Overall: benign lips 11/17/2017 None Full Exam - ENT Ears/Nose/Throat oropharynx Overall: oral mucosa clear 11/17/2017 None Full Exam - ENT Ears/Nose/Throat oropharynx Posterior Pharynx: clear post nasal drainage 11/17/2017 None Full Exam - ENT Ears/Nose/Throat oropharynx Posterior Pharynx: erythema 11/17/2017 None Full Exam - ENT Respiratory inspection Overall: no retractions 11/17/2017 None Full Exam - ENT Respiratory inspection Overall: normal rate None Full Exam - ENT Respiratory auscultation Overall: breath sounds clear bilaterally 11/17/2017 None Full Exam - ENT Cardiovascular auscultation of heart Rate: normal rate 11/17/2017 None Full Exam - ENT Cardiovascular auscultation of heart Rhythm: regular rhythm 11/17/2017 None Full Exam - ENT Lymphatic palpation of lymph nodes Overall: anterior cervical chain benign 11/17/2017 None Full Exam - ENT Lymphatic palpation of lymph nodes Overall: posterior cervical chain benign 11/17/2017 None Full Exam - ENT Neurologic mood and affect Overall: normal mood 11/17/2017 None Full Exam - ENT Neurologic mood and affect Overall: normal affect 11/17/2017 None Full Exam - ENT Neurologic orientation Overall: oriented to person, place and time 11/17/2017 None Full Exam - Dermatology Constitutional general appearance Overall: well nourished 10/08/2017 None Full Exam - Dermatology Constitutional general appearance Overall: well developed 10/08/2017 None Full Exam - Dermatology Constitutional general appearance Overall: in no acute distress 10/08/2017 None Full Exam - Dermatology Constitutional general appearance Overall: of normal body habitus 10/08/2017 None Full Exam - Dermatology Constitutional general appearance Overall: well groomed 10/08/2017 None Full Exam - Dermatology Psychiatric orientation Overall: oriented to person, place and time 10/08/2017 None Full Exam - Dermatology Integument insp & palp - right lower extremity Lesion: papule 10/08/2017 AK right anterior thigh Full Exam - General 1994 Constitutional general appearance Development: well developed 09/02/2017 None Full Exam - General 1994 Constitutional general appearance Development: appears stated age 1109/02/2017 None Full Exam - General 1994 Constitutional general appearance Hygiene/Attention to Grooming: good hygiene 09/02/2017 None Full Exam - General 1994 Eyes conjunctiva /eyelids Overall: conjunctiva clear 09/02/2017 None Full Exam - General 1994 Eyes conjunctiva /eyelids Overall: cornea clear 09/02/2017 None Full Exam - General 1994 Eyes conjunctiva /eyelids Overall: eyelids normal 09/02/2017 None Full Exam - General 1994 Eyes pupils and irises Overall: pupils equal, round, reactive to light and accomodation 09/02/2017 None Full Exam - General 1994 Ears/Nose/Throat otoscopic exam Overall: external auditory canals clear 09/02/2017 None Full Exam - General 1994 Ears/Nose/Throat otoscopic exam Overall: tympanic membranes clear 09/02/2017 None Full Exam - General 1994 Ears/Nose/Throat lips/teeth/gingiva Overall: benign lips 09/02/2017 None Full Exam - General 1995 Ears/Nose/Throat lips/teeth/gingiva Overall: normal dentition 09/02/2017 None Full Exam - General 1994 Ears/Nose/Throat oral cavity/pharynx/larynx Overall: oral mucosa clear 09/02/2017 None Full Exam - General 1994 Ears/Nose/Throat oral cavity/pharynx/larynx Overall: oropharyngeal mucosa clear 09/02/2017 None Full Exam - General 1994 Ears/Nose/Throat oral cavity/pharynx/larynx Overall: hypopharynx benign 09/02/2017 None Full Exam - General 1994 Ears/Nose/Throat oral cavity/pharynx/larynx Overall: no masses 09/02/2017 None Full Exam - General 1994 Respiratory auscultation Overall: breath sounds clear bilaterally 09/02/2017 None Full Exam - General 1994 Respiratory respiratory effort/rhythm Overall: no retractions 09/02/2017 None Full Exam - General 1994 Respiratory respiratory effort/rhythm Overall: normal rate 09/02/2017 None Full Exam - General 1994 Cardiovascular extremities Overall: no clubbing 09/02/2017 None Full Exam - General 1994 Cardiovascular auscultation of heart Overall: regular rate 09/02/2017 None Full Exam - General 1994 Cardiovascular auscultation of heart Overall: normal heart sounds 09/02/2017 None Full Exam - General 1994 Cardiovascular auscultation of heart Systolic murmur: holosystolic 09/02/2017 None Full Exam - General 1994 Cardiovascular auscultation of heart Systolic murmur grade: II/ 09/02/2017 None Full Exam - General 1994 Abdomen abdominal exam Overall: no tenderness 09/02/2017 None Full Exam - General 1994 Abdomen abdominal exam Overall: normal bowel sounds 09/02/2017 None Full Exam - General 1994 Musculoskeletal spine, ribs and pelvis Overall: spine benign 09/02/2017 None Full Exam - General 1994 Musculoskeletal spine, ribs and pelvis Overall: sacroiliac joint benign 09/02/2017 None Full Exam - General 1994 Musculoskeletal spine, ribs and pelvis Overall: good posture 09/02/2017 None Full Exam - General 1994 Neurologic cranial nerves Overall: crainial nerves 2 - 12 grossly intact 09/02/2017 None Full Exam - General 1994 Psychiatric orientation/consciousness Overall: oriented to person, place and time 09/02/2017 None Full Exam - General 1994 Psychiatric mood and affect Overall: normal mood and affect 09/02/2017 None Full Exam - General 1994 Integument inspection of skin Location: left arm 09/02/2017 None Full Exam - General 1994 Integument inspection of skin Location: right arm 09/02/2017 keratotis on posterior arm right and left - treated with cryotherapy x 3 on two lesions left arm and right arm Full Exam - General 1994 Constitutional general appearance Development: well developed 03/04/2017 None Full Exam - General 1994 Constitutional general appearance Development: appears stated age 0503/04/2017 None Full Exam - General 1994 Constitutional general appearance Hygiene/Attention to Grooming: good hygiene 03/04/2017 None Full Exam - General 1994 Eyes conjunctiva /eyelids Overall: conjunctiva clear 03/04/2017 None Full Exam - General 1994 Eyes conjunctiva /eyelids Overall: cornea clear 03/04/2017 None Full Exam - General 1994 Eyes conjunctiva /eyelids Overall: eyelids normal 03/04/2017 None Full Exam - General 1994 Eyes pupils and irises Overall: pupils equal, round, reactive to light and accomodation 03/04/2017 None Full Exam - General 1994 Ears/Nose/Throat otoscopic exam Overall: external auditory canals clear 03/04/2017 None Full Exam - General 1994 Ears/Nose/Throat otoscopic exam Overall: tympanic membranes clear 03/04/2017 None Full Exam - General 1994 Ears/Nose/Throat lips/teeth/gingiva Overall: benign lips 03/04/2017 None Full Exam - General 1994 Ears/Nose/Throat lips/teeth/gingiva Overall: normal dentition 03/04/2017 None Full Exam - General 1994 Ears/Nose/Throat oral cavity/pharynx/larynx Overall: oral mucosa clear 03/04/2017 None Full Exam - General 1994 Ears/Nose/Throat oral cavity/pharynx/larynx Overall: oropharyngeal mucosa clear 03/04/2017 None Full Exam - General 1994 Ears/Nose/Throat oral cavity/pharynx/larynx Overall: hypopharynx benign 03/04/2017 None Full Exam - General 1994 Ears/Nose/Throat oral cavity/pharynx/larynx Overall: no masses 03/04/2017 None Full Exam - General 1994 Respiratory auscultation Overall: breath sounds clear bilaterally 03/04/2017 None Full Exam - General 1994 Respiratory respiratory effort/rhythm Overall: no retractions 03/04/2017 None Full Exam - General 1994 Respiratory respiratory effort/rhythm Overall: normal rate 03/04/2017 None Full Exam - General 1994 Cardiovascular extremities Overall: no clubbing 03/04/2017 None Full Exam - General 1994 Cardiovascular auscultation of heart Overall: regular rate 03/04/2017 None Full Exam - General 1994 Cardiovascular auscultation of heart Overall: normal heart sounds 03/04/2017 None Full Exam - General 1994 Cardiovascular auscultation of heart Systolic murmur: holosystolic 03/04/2017 None Full Exam - General 1994 Cardiovascular auscultation of heart Systolic murmur grade: II/ 03/04/2017 None Full Exam - General 1994 Abdomen abdominal exam Overall: no tenderness 03/04/2017 None Full Exam - General 1994 Abdomen abdominal exam Overall: normal bowel sounds 03/04/2017 None Full Exam - General 1994 Musculoskeletal spine, ribs and pelvis Overall: good posture 03/04/2017 None Full Exam - General 1994 Neurologic deep tendon reflexes Overall: deep tendon reflexes intact 03/04/2017 None Full Exam - General 1994 Neurologic cranial nerves Overall: crainial nerves 2 - 12 grossly intact 03/04/2017 None Full Exam - General 1994 Psychiatric orientation/consciousness Overall: oriented to person, place and time 03/04/2017 None Full Exam - General 1994 Psychiatric mood and affect Overall: normal mood and affect 03/04/2017 None Full Exam - General 1994 Constitutional general appearance Development: well developed 01/21/2017 None Full Exam - General 1994 Constitutional general appearance Development: appears stated age 0301/21/2017 None Full Exam - General 1994 Eyes conjunctiva /eyelids Overall: conjunctiva clear 01/21/2017 None Full Exam - General 1994 Eyes conjunctiva /eyelids Overall: cornea clear 01/21/2017 None Full Exam - General 1994 Eyes conjunctiva /eyelids Overall: eyelids normal 01/21/2017 None Full Exam - General 1994 Eyes pupils and irises Overall: pupils equal, round, reactive to light and accomodation 01/21/2017 None Full Exam - General 1994 Ears/Nose/Throat otoscopic exam External auditory canal: complete cerumen impaction 01/21/2017 None Full Exam - General 1994 Ears/Nose/Throat lips/teeth/gingiva Overall: benign lips 01/21/2017 None Full Exam - General 1994 Ears/Nose/Throat lips/teeth/gingiva Overall: normal dentition 01/21/2017 None Full Exam - General 1994 Ears/Nose/Throat oral cavity/pharynx/larynx Overall: oral mucosa clear 01/21/2017 None Full Exam - General 1994 Neck thyroid Overall: normal size None Full Exam - General 1994 Neck thyroid Overall: normal consistency 01/21/2017 None Full Exam - General 1994 Neck thyroid Overall: nontender 2016 None Full Exam - General 1994 Respiratory auscultation Overall: breath sounds clear bilaterally 01/21/2017 None Full Exam - General 1994 Respiratory respiratory effort/rhythm Overall: no retractions 01/21/2017 None Full Exam - General 1994 Respiratory respiratory effort/rhythm Overall: normal rate 01/21/2017 None Full Exam - General 1994 Cardiovascular auscultation of heart Overall: regular rate 01/21/2017 None Full Exam - General 1994 Cardiovascular auscultation of heart Overall: normal heart sounds 01/21/2017 None Full Exam - General 1994 Abdomen abdominal exam Overall: no tenderness 01/21/2017 None Full Exam - General 1994 Abdomen abdominal exam Overall: normal bowel sounds 01/21/2017 None Full Exam - General 1994 Lymphatic neck nodes Overall: anterior cervical chain benign 01/21/2017 None Full Exam - General 1994 Lymphatic neck nodes Overall: posterior cervical chain benign 01/21/2017 None Full Exam - General 1994 Cardiovascular auscultation of heart Murmur: previously known murmur unchanged 01/21/2017 None Full Exam - General 1994 Musculoskeletal gait and station Overall: normal gait 01/21/2017 None Full Exam - General 1994 Musculoskeletal gait and station Overall: normal station 01/21/2017 None Full Exam - General 1994 Musculoskeletal head and neck Overall: head atraumatic 01/21/2017 None Full Exam - General 1994 Musculoskeletal head and neck Overall: TMJ benign 01/21/2017 None Full Exam - General 1994 Musculoskeletal head and neck Overall: cervical spine benign 01/21/2017 None Full Exam - General 1994 Neurologic mental status Overall: alert 01/21/2017 None Full Exam - General 1994 Neurologic mental status Overall: oriented 01/21/2017 None Full Exam - General 1994 Neurologic motor Overall: normal bulk, tone 01/21/2017 None Full Exam - General 1994 Psychiatric orientation/consciousness Overall: oriented to person, place and time 01/21/2017 None Full Exam - General 1994 Psychiatric mood and affect Overall: normal mood and affect 01/21/2017 None Full Exam - General 1994 Psychiatric speech Overall: normal quality, no aphasia 01/21/2017 None Full Exam - General 1994 Integument inspection of skin Pigmentation: presence of a scar 01/21/2017 FROM FALL TWO WEEKS AGO Full Exam - General 1994 Integument inspection of skin Consistency: edema 01/21/2017 None Full Exam - General 1994 Integument inspection of skin Location: face 01/21/2017 UNDER LEFT EYE AND LEFT UPPER LIP Full Exam - ENT Constitutional general appearance Overall: well nourished 12/29/2016 None Full Exam - ENT Constitutional general appearance Overall: well developed 12/29/2016 None Full Exam - ENT Constitutional general appearance Overall: in no acute distress 12/29/2016 None Full Exam - ENT Ears/Nose/Throat otoscopic exam Overall: external auditory canals normal 12/29/2016 None Full Exam - ENT Ears/Nose/Throat otoscopic exam Left tympanic membrane: air -fluid level 12/29/2016 None Full Exam - ENT Ears/Nose/Throat otoscopic exam Right tympanic membrane: air-fluid level 12/29/2016 None Full Exam - ENT Ears/Nose/Throat lips/ teeth/gingiva Overall: benign lips 12/29/2016 None Full Exam - ENT Ears/Nose/Throat oropharynx Overall: oral mucosa clear 12/29/2016 None Full Exam - ENT Ears/Nose/Throat oropharynx Posterior Pharynx: clear post nasal drainage 12/29/2016 None Full Exam - ENT Respiratory inspection Overall: no retractions 12/29/2016 None Full Exam - ENT Respiratory inspection Overall: normal rate 04/2017 None Full Exam - ENT Respiratory auscultation Overall: breath sounds clear bilaterally 12/29/2016 None Full Exam - ENT Cardiovascular auscultation of heart Rate: normal rate 12/29/2016 None Full Exam - ENT Cardiovascular auscultation of heart Rhythm: regular rhythm 12/29/2016 None Full Exam - ENT Lymphatic palpation of lymph nodes Overall: anterior cervical chain benign 12/29/2016 None Full Exam - ENT Lymphatic palpation of lymph nodes Overall: posterior cervical chain benign 12/29/2016 None Full Exam - ENT Neurologic mood and affect Overall: normal mood 12/29/2016 None Full Exam - ENT Neurologic mood and affect Overall: normal affect 12/29/2016 None Full Exam - ENT Neurologic orientation Overall: oriented to person, place and time 12/29/2016 None Full Exam - ENT Cardiovascular auscultation of heart Systolic murmur: holosystolic 12/29/2016 None Full Exam - ENT Cardiovascular auscultation of heart Systolic murmur grade: II/ 12/29/2016 None Full Exam - ENT Respiratory auscultation Diffuse: diminished None Full Exam - General 1994 Constitutional general appearance Development: well developed 07/31/2016 None Full Exam - General 1994 Constitutional general appearance Development: appears stated age 1007/31/2016 None Full Exam - General 1994 Constitutional general appearance Hygiene/Attention to Grooming: good hygiene 07/31/2016 None Full Exam - General 1994 Eyes conjunctiva /eyelids Overall: conjunctiva clear 07/31/2016 None Full Exam - General 1994 Eyes conjunctiva /eyelids Overall: cornea clear 07/31/2016 None Full Exam - General 1994 Eyes conjunctiva /eyelids Overall: eyelids normal 07/31/2016 None Full Exam - General 1994 Eyes pupils and irises Overall: pupils equal, round, reactive to light and accomodation 07/31/2016 None Full Exam - General 1994 Ears/Nose/Throat otoscopic exam Overall: external auditory canals clear 07/31/2016 None Full Exam - General 1994 Ears/Nose/Throat otoscopic exam Overall: tympanic membranes clear 07/31/2016 None Full Exam - General 1994 Ears/Nose/Throat lips/teeth/gingiva Overall: benign lips 07/31/2016 None Full Exam - General 1994 Ears/Nose/Throat lips/teeth/gingiva Overall: normal dentition 07/31/2016 None Full Exam - General 1994 Ears/Nose/Throat oral cavity/pharynx/larynx Overall: oral mucosa clear 07/31/2016 None Full Exam - General 1994 Ears/Nose/Throat oral cavity/pharynx/larynx Overall: oropharyngeal mucosa clear 07/31/2016 None Full Exam - General 1994 Ears/Nose/Throat oral cavity/pharynx/larynx Overall: hypopharynx benign 07/31/2016 None Full Exam - General 1994 Ears/Nose/Throat oral cavity/pharynx/larynx Overall: no masses 07/31/2016 None Full Exam - General 1994 Respiratory auscultation Overall: breath sounds clear bilaterally 07/31/2016 None Full Exam - General 1994 Respiratory respiratory effort/rhythm Overall: no retractions 07/31/2016 None Full Exam - General 1994 Respiratory respiratory effort/rhythm Overall: normal rate 07/31/2016 None Full Exam - General 1994 Cardiovascular extremities Overall: no clubbing 07/31/2016 None Full Exam - General 1994 Cardiovascular auscultation of heart Overall: regular rate 07/31/2016 None Full Exam - General 1994 Cardiovascular auscultation of heart Overall: normal heart sounds 07/31/2016 None Full Exam - General 1994 Abdomen abdominal exam Overall: no tenderness 07/31/2016 None Full Exam - General 1994 Abdomen abdominal exam Overall: normal bowel sounds 07/31/2016 None Full Exam - General 1994 Lymphatic neck nodes Overall: anterior cervical chain benign 07/31/2016 None Full Exam - General 1994 Lymphatic neck nodes Overall: posterior cervical chain benign 07/31/2016 None Full Exam - General 1994 Musculoskeletal spine, ribs and pelvis Overall: spine benign 07/31/2016 None Full Exam - General 1994 Musculoskeletal spine, ribs and pelvis Overall: sacroiliac joint benign 07/31/2016 None Full Exam - General 1994 Musculoskeletal spine, ribs and pelvis Overall: good posture 07/31/2016 None Full Exam - General 1994 Neurologic deep tendon reflexes Overall: deep tendon reflexes intact 07/31/2016 None Full Exam - General 1994 Neurologic cranial nerves Overall: crainial nerves 2 - 12 grossly intact 07/31/2016 None Full Exam - General 1994 Psychiatric orientation/consciousness Overall: oriented to person, place and time 07/31/2016 None Full Exam - General 1994 Psychiatric mood and affect Overall: normal mood and affect 07/31/2016 None Full Exam - General 1994 Integument inspection of skin Dermatitis: erythema 07/31/2016 chest, back and upper arms- pruritic Full Exam - General 1994 Cardiovascular auscultation of heart Systolic murmur: holosystolic 07/31/2016 None Full Exam - General 1994 Cardiovascular auscultation of heart Systolic murmur grade: II/ 07/31/2016 None Full Exam - General 1994 Constitutional general appearance Development: well developed 01/27/2016 None Full Exam - General 1994 Constitutional general appearance Development: appears stated age 0401/27/2016 None Full Exam - General 1994 Constitutional general appearance Hygiene/Attention to Grooming: good hygiene 01/27/2016 None Full Exam - General 1994 Eyes conjunctiva /eyelids Overall: conjunctiva clear 01/27/2016 None Full Exam - General 1994 Eyes conjunctiva /eyelids Overall: cornea clear 01/27/2016 None Full Exam - General 1994 Eyes conjunctiva /eyelids Overall: eyelids normal 01/27/2016 None Full Exam - General 1994 Eyes pupils and irises Overall: pupils equal, round, reactive to light and accomodation 01/27/2016 None Full Exam - General 1994 Ears/Nose/Throat otoscopic exam Overall: external auditory canals clear 01/27/2016 None Full Exam - General 1994 Ears/Nose/Throat otoscopic exam Overall: tympanic membranes clear 01/27/2016 None Full Exam - General 1994 Ears/Nose/Throat lips/teeth/gingiva Overall: benign lips 01/27/2016 None Full Exam - General 1994 Ears/Nose/Throat lips/teeth/gingiva Overall: normal dentition 01/27/2016 None Full Exam - General 1994 Ears/Nose/Throat oral cavity/pharynx/larynx Overall: oral mucosa clear 01/27/2016 None Full Exam - General 1994 Ears/Nose/Throat oral cavity/pharynx/larynx Overall: oropharyngeal mucosa clear 01/27/2016 None Full Exam - General 1994 Ears/Nose/Throat oral cavity/pharynx/larynx Overall: hypopharynx benign 01/27/2016 None Full Exam - General 1994 Ears/Nose/Throat oral cavity/pharynx/larynx Overall: no masses 01/27/2016 None Full Exam - General 1994 Respiratory auscultation Overall: breath sounds clear bilaterally 01/27/2016 None Full Exam - General 1994 Respiratory respiratory effort/rhythm Overall: no retractions 01/27/2016 None Full Exam - General 1994 Respiratory respiratory effort/rhythm Overall: normal rate 01/27/2016 None Full Exam - General 1994 Cardiovascular extremities Overall: no clubbing 01/27/2016 None Full Exam - General 1994 Cardiovascular auscultation of heart Overall: regular rate 01/27/2016 None Full Exam - General 1994 Cardiovascular auscultation of heart Overall: normal heart sounds 01/27/2016 None Full Exam - General 1994 Abdomen abdominal exam Overall: no tenderness 01/27/2016 None Full Exam - General 1994 Abdomen abdominal exam Overall: normal bowel sounds 01/27/2016 None Full Exam - General 1994 Lymphatic neck nodes Overall: anterior cervical chain benign 01/27/2016 None Full Exam - General 1994 Lymphatic neck nodes Overall: posterior cervical chain benign 01/27/2016 None Full Exam - General 1994 Musculoskeletal spine, ribs and pelvis Overall: spine benign 01/27/2016 None Full Exam - General 1994 Musculoskeletal spine, ribs and pelvis Overall: sacroiliac joint benign 01/27/2016 None Full Exam - General 1994 Musculoskeletal spine, ribs and pelvis Overall: good posture 01/27/2016 None Full Exam - General 1994 Integument inspection of skin Overall: few scattered moles, no gross abnormalities 01/27/2016 None Full Exam - General 1994 Neurologic deep tendon reflexes Overall: deep tendon reflexes intact 01/27/2016 None Full Exam - General 1994 Neurologic cranial nerves Overall: crainial nerves 2 - 12 grossly intact 01/27/2016 None Full Exam - General 1994 Psychiatric orientation/consciousness Overall: oriented to person, place and time 01/27/2016 None Full Exam - General 1994 Psychiatric mood and affect Overall: normal mood and affect 01/27/2016 None Full Exam - General 1994 Constitutional general appearance Overall: well nourished 08/12/2015 None Full Exam - General 1994 Constitutional general appearance Overall: well developed 08/12/2015 None Full Exam - General 1994 Constitutional general appearance Overall: in no acute distress 08/12/2015 None Full Exam - General 1994 Ears/Nose/Throat otoscopic exam Overall: tympanic membranes clear 08/12/2015 None Full Exam - General 1994 Ears/Nose/Throat otoscopic exam Overall: external auditory canals clear 08/12/2015 None Full Exam - General 1994 Ears/Nose/Throat oral cavity/pharynx/larynx Overall: oropharyngeal mucosa clear 08/12/2015 None Full Exam - General 1994 Ears/Nose/Throat oral cavity/pharynx/larynx Overall: no masses 08/12/2015 None Full Exam - General 1994 Ears/Nose/Throat oral cavity/pharynx/larynx Overall: oral mucosa clear 08/12/2015 None Full Exam - General 1994 Respiratory respiratory effort/rhythm Overall: normal rate 08/12/2015 None Full Exam - General 1994 Respiratory respiratory effort/rhythm Overall: no retractions 08/12/2015 None Full Exam - General 1994 Respiratory auscultation Overall: breath sounds clear bilaterally 08/12/2015 None Full Exam - General 1994 Cardiovascular auscultation of heart Overall: regular rate 08/12/2015 None Full Exam - General 1994 Cardiovascular auscultation of heart Overall: normal heart sounds 08/12/2015 None Full Exam - General 1994 Cardiovascular auscultation of heart Overall: no murmurs 08/12/2015 None Full Exam - General 1994 Psychiatric orientation/consciousness Overall: oriented to person, place and time 08/12/2015 None Full Exam - General 1994 Integument inspection of skin Location: scalp 08/12/2015 right frontoparietal region - about 1cm sebaceous cyst, nontender, no erythema Full Exam - General 1994 Integument inspection of skin Overall: few scattered moles, with seborrheic keratosis on arms, chest, back 2014 None Full Exam - General 1994 Constitutional general appearance Development: well developed 06/24/2015 None Full Exam - General 1994 Constitutional general appearance Development: appears stated age 0806/24/2015 None Full Exam - General 1994 Constitutional general appearance Hygiene/Attention to Grooming: good hygiene 06/24/2015 None Full Exam - General 1994 Eyes conjunctiva /eyelids Overall: conjunctiva clear 06/24/2015 None Full Exam - General 1994 Eyes conjunctiva /eyelids Overall: cornea clear 06/24/2015 None Full Exam - General 1994 Eyes conjunctiva /eyelids Overall: eyelids normal 06/24/2015 None Full Exam - General 1994 Eyes pupils and irises Overall: pupils equal, round, reactive to light and accomodation 06/24/2015 None Full Exam - General 1994 Respiratory auscultation Overall: breath sounds clear bilaterally 06/24/2015 None Full Exam - General 1994 Respiratory respiratory effort/rhythm Overall: no retractions 06/24/2015 None Full Exam - General 1994 Respiratory respiratory effort/rhythm Overall: normal rate 06/24/2015 None Full Exam - General 1994 Cardiovascular extremities Overall: no clubbing 06/24/2015 None Full Exam - General 1994 Cardiovascular auscultation of heart Overall: regular rate 06/24/2015 None Full Exam - General 1994 Cardiovascular auscultation of heart Overall: normal heart sounds 06/24/2015 None Full Exam - General 1994 Neurologic deep tendon reflexes Overall: deep tendon reflexes intact 06/24/2015 None Full Exam - General 1994 Neurologic cranial nerves Overall: crainial nerves 2 - 12 grossly intact 06/24/2015 None Full Exam - General 1994 Psychiatric orientation/consciousness Overall: oriented to person, place and time 06/24/2015 None Full Exam - General 1994 Psychiatric mood and affect Overall: normal mood and affect 06/24/2015 None Full Exam - General 1994 Musculoskeletal lower extremity Overall: lower leg non- tender, without crepitus or defects 06/24/2015 None Full Exam - General 1994 Musculoskeletal spine, ribs and pelvis Overall: good posture 06/24/2015 None Full Exam - General 1994 Integument inspection of skin Location: left arm 06/24/2015 None Full Exam - General 1994 Integument inspection of skin Location: right arm 06/24/2015 None Full Exam - General 1994 Integument inspection of skin Dermatitis: erythema 06/24/2015 None Full Exam - General 1994 Integument inspection of skin Dermatitis: excoriation 06/24/2015 None Full Exam - General 1994 Integument inspection of skin Rash/Lesions: macule 06/24/2015 None Full Exam - General 1994 Integument inspection of skin Rash/Lesions: papule 06/24/2015 None Full Exam - General 1994 Integument inspection of skin Pigmentation: erythematous 06/24/2015 None Full Exam - General 1994 Constitutional general appearance Development: appears stated age 0502/26/2015 None Full Exam - General 1994 Constitutional general appearance Development: well developed 02/26/2015 None Full Exam - General 1994 Constitutional general appearance Hygiene/Attention to Grooming: good hygiene 02/26/2015 None Full Exam - General 1994 Eyes conjunctiva /eyelids Overall: conjunctiva clear 02/26/2015 None Full Exam - General 1994 Eyes conjunctiva /eyelids Overall: cornea clear 02/26/2015 None Full Exam - General 1994 Eyes conjunctiva /eyelids Overall: eyelids normal 02/26/2015 None Full Exam - General 1994 Eyes pupils and irises Overall: pupils equal, round, reactive to light and accomodation 02/26/2015 None Full Exam - General 1994 Ears/Nose/Throat otoscopic exam Overall: external auditory canals clear 02/26/2015 None Full Exam - General 1994 Ears/Nose/Throat otoscopic exam Overall: tympanic membranes clear 02/26/2015 None Full Exam - General 1994 Ears/Nose/Throat lips/teeth/gingiva Overall: benign lips 02/26/2015 None Full Exam - General 1994 Ears/Nose/Throat lips/teeth/gingiva Overall: normal dentition 02/26/2015 None Full Exam - General 1994 Ears/Nose/Throat oral cavity/pharynx/larynx Overall: hypopharynx benign 02/26/2015 None Full Exam - General 1994 Ears/Nose/Throat oral cavity/pharynx/larynx Overall: no masses 02/26/2015 None Full Exam - General 1994 Ears/Nose/Throat oral cavity/pharynx/larynx Overall: oral mucosa clear 02/26/2015 None Full Exam - General 1994 Ears/Nose/Throat oral cavity/pharynx/larynx Overall: oropharyngeal mucosa clear 02/26/2015 None Full Exam - General 1994 Respiratory auscultation Overall: breath sounds clear bilaterally 02/26/2015 None Full Exam - General 1994 Respiratory respiratory effort/rhythm Overall: no retractions 02/26/2015 None Full Exam - General 1994 Respiratory respiratory effort/rhythm Overall: normal rate 02/26/2015 None Full Exam - General 1994 Cardiovascular extremities Overall: no clubbing 02/26/2015 None Full Exam - General 1994 Cardiovascular auscultation of heart Overall: normal heart sounds 02/26/2015 None Full Exam - General 1994 Cardiovascular auscultation of heart Overall: regular rate 02/26/2015 None Full Exam - General 1994 Abdomen abdominal exam Overall: no tenderness 02/26/2015 None Full Exam - General 1994 Abdomen abdominal exam Overall: normal bowel sounds 02/26/2015 None Full Exam - General 1994 Integument inspection of skin Overall: few scattered moles, no gross abnormalities 02/26/2015 None Full Exam - General 1994 Neurologic deep tendon reflexes Overall: deep tendon reflexes intact 02/26/2015 None Full Exam - General 1994 Neurologic cranial nerves Overall: crainial nerves 2 - 12 grossly intact 02/26/2015 None Full Exam - General 1994 Psychiatric orientation/consciousness Overall: oriented to person, place and time 02/26/2015 None Full Exam - General 1994 Psychiatric mood and affect Overall: normal mood and affect 02/26/2015 None Full Exam - General 1994 Lymphatic neck nodes Overall: anterior cervical chain benign 02/26/2015 None Full Exam - General 1994 Lymphatic neck nodes Overall: posterior cervical chain benign 02/26/2015 None Full Exam - General 1994 Musculoskeletal spine, ribs and pelvis Overall: good posture 02/26/2015 None Full Exam - General 1994 Musculoskeletal spine, ribs and pelvis Overall: sacroiliac joint benign 02/26/2015 None Full Exam - General 1994 Musculoskeletal spine, ribs and pelvis Overall: spine benign 02/26/2015 None Full Exam - General 1994 Musculoskeletal lower extremity Palpation - knee: crepitus 02/26/2015 None Procedures Procedure Codes Date DESTRUCT PREMALG LESION CPT-4: 33481 10/08/2017 Vital Signs Date Vital 11/17/2017 Blood Pressure 1: 126/72 Code : 8480-6 BMI: 26.6 Code : 84344-4 Heart Rate 1 : 74 bpm Height: 5'8" SpO2: 96% Temperature: 37.1 (C) / 98.7 (F) Weight: 175 lbs 10/08/2017 Blood Pressure 1: 136/82 Code : 8480-6 Heart Rate 1: 67 bpm Height: 5'8" SpO2: 97% Weight: 09/02/2017 Blood Pressure 1: 122/70 Code : 8480-6 BMI: 26.5 Code : 60070-8 Heart Rate 1 : 62 bpm Height: 5'8" SpO2: 97% Weight: 174 lbs 8 oz 03/04/2017 Blood Pressure 1: 132/72 Code : 8480-6 BMI: 27.4 Code : 55464-1 Heart Rate 1 : 61 bpm Height: 5'8" SpO2: 95% Weight: 180 lbs 01/21/2017 Blood Pressure 1: 12672 Code : 8480-6 BMI: 27.7 Code : 74617-5 Heart Rate 1 : 71 bpm Height: 5'8" SpO2: 97% Weight: 182 lbs 12/29/2016 Blood Pressure 1: 12672 Code : 8480-6 BMI: 27.5 Code : 11977-7 Heart Rate 1 : 74 bpm Height: 5'8" SpO2: 97% Temperature: 36.8 (C) / 98.3 (F) Weight: 181 lbs 07/31/2016 Blood Pressure 1: 128/78 Code : 8480-6 BMI: 27.2 Code : 67549-3 Heart Rate 1 : 64 bpm Height: 5'8" SpO2: 96% Weight: 179 lbs 01/27/2016 Blood Pressure 1: 128/82 Code : 8480-6 BMI: 27.1 Code : 11922-5 Heart Rate 1 : 87 bpm Height: 5'8" SpO2: 96% Weight: 178 lbs 08/12/2015 Blood Pressure 1: 126/80 Code : 8480-6 BMI: 26.9 Code : 06247-1 Heart Rate 1 : 70 bpm Height: 5'8" SpO2: 98% Weight: 177 lbs 06/24/2015 Blood Pressure 1: 112/60 Code : 8480-6 BMI: 26.3 Code : 82593-0 Heart Rate 1 : 69 bpm Height: 5'8" SpO2: 97% Weight: 173 lbs 02/26/2015 Blood Pressure 1: 130/82 Code : 8480-6 BMI: 27.1 Code : 91167-2 Heart Rate 1 : 80 bpm Height: 5'8" Weight: 178 lbs Functional Status No Functional Status data History of Present Illness Symptom Name Status Result Effective Date Notes chest tightness Location diffusely 11/17/2017 None chest tightness Quality acute 11/17/2017 None chest tightness Onset and Resolution sudden in onset 11/17/2017 None chest tightness Onset of Symptom 5 days ago 11/17/2017 None chest tightness Pertinent Findings Denies cough 11/17/2017 None chest tightness Pertinent Findings fever 11/17/2017 None chest tightness Pertinent Findings Denies sputum production 11/17/2017 None chest tightness Triggers no known associated factors 11/17/2017 None earache Location left ear 11/17/2017 None earache Quality acute 11/17/2017 None earache Onset and Resolution sudden in onset 11/17/2017 None earache Onset of Symptom 5 days ago 11/17/2017 None skin lesion Quality scabbed 10/08/2017 None skin lesion Quality raised 10/08/2017 None skin lesion Quality enlarging 10/08/2017 None skin lesion Quality red 10/08/2017 None skin lesion Onset and Resolution sudden in onset 10/08/2017 None skin lesion Onset of Symptom 1 days ago 10/08/2017 None skin lesion Pertinent Findings family history of atopy 10/08/2017 None skin lesion Severity mild 10/08/2017 None skin lesion Frequency of Episodes increasing 10/08/2017 None skin lesion Location right lower leg 10/08/2017 right thigh skin lesion Quality scabbed 09/02/2017 None skin lesion Quality raised 09/02/2017 None hand pain Location on the right 09/02/2017 None hand pain Location in the middle finger 09/02/2017 None hand pain Quality dull pain 09/02/2017 None hand pain Quality intermittent 09/02/2017 None hand pain Mechanism of injury direct trauma 09/02/2017 fell in December cough Location in the throat 03/04/2017 None cough Quality constant 03/04/2017 None cough Quality dry 08/2017 None cough Onset and Resolution sudden in onset 03/04/2017 None cough Onset of Symptom 3 weeks ago 03/04/2017 None cough Frequency of Episodes daily 03/04/2017 None sore throat Location diffusely 03/04/2017 None sore throat Quality constant 03/04/2017 None sore throat Quality scratchy 03/04/2017 None sore throat Onset and Resolution sudden in onset 03/04/2017 None sore throat Onset of Symptom 3 weeks ago 03/04/2017 None Hospital Follow Up _ Other: fall 01/21/2017 None Hospital Follow Up _ pain 01/21/2017 None Hospital Follow Up Quality acute 01/21/2017 None Hospital Follow Up Pertinent Findings pain 01/21/2017 None Hospital Follow Up Pertinent Findings Other: lacerations 01/21/2017 None Hospital Follow Up Onset and Resolution ongoing 01/21/2017 None Hospital Follow Up Severity mild 01/21/2017 None Hospital Follow Up Significant Medical Conditions _ 01/21/2017 None sinus congestion Location on both sides 12/29/2016 None sinus congestion Quality constant 12/29/2016 None sinus congestion Quality fullness 12/29/2016 None sinus congestion Quality pressure 12/29/2016 None sinus congestion Onset and Resolution sudden in onset 12/29/2016 None sinus congestion Onset of Symptom 3 weeks ago 12/29/2016 None sore throat Location diffusely 12/29/2016 None sore throat Quality constant 12/29/2016 None sore throat Quality scratchy 12/29/2016 None headache Location diffusely 12/29/2016 None headache Quality constant 12/29/2016 None rash Location-Major on the arms 07/31/2016 None rash Color pink 2015 None rash Pertinent Findings Denies itching 07/31/2016 None rash Pertinent Findings Denies pain 07/31/2016 None rash Quality acute 04/2016 None rash Onset and Resolution ongoing 07/31/2016 None rash Onset of Symptom 6 months ago 07/31/2016 None rash Frequency of Episodes unchanged 07/31/2016 None rash Limitation on Activities does not limit activities 07/31/2016 None rash Severity asymptomatic 07/31/2016 None rash Triggers no known triggers 07/31/2016 None ingrown toenail Quality acute 01/27/2016 right great toe medial ingrown toenail Pertinent Findings pain with movement 01/27/2016 None neck pain Quality intermittent 01/27/2016 None neck pain Onset and Resolution ongoing 01/27/2016 None neck pain Pertinent Findings ear pain 01/27/2016 right ingrown toenail Limitation on Activities does not limit activities 01/27/2016 None cyst Onset of Symptom 5 years ago 08/12/2015 None cyst Location on the scalp 08/12/2015 None cyst Pertinent Findings Denies pain 08/12/2015 None cyst Pertinent Findings Denies tenderness 08/12/2015 None cyst Pertinent Findings Denies drainage 08/12/2015 None mole check Location-Extremities on the left arm 08/12/2015 None mole check Location-Trunk on the mid back 08/12/2015 None edema Onset and Resolution gradual in onset 06/24/2015 None edema Limitation on Activities does not limit activities 06/24/2015 None edema Onset of Symptom 1 years ago 06/24/2015 None edema Frequency of Episodes daily 06/24/2015 None edema Timing of Episodes in the evening 06/24/2015 None edema Triggers no known associated factors 06/24/2015 None edema Alleviating Factors rest 06/24/2015 None edema Location on both ankles 06/24/2015 None edema Quality intermittent 06/24/2015 None rash Location-Extremities on both arms 06/24/2015 None rash Color red 2014 None rash Onset of Symptom 4 months ago 06/24/2015 None rash Frequency of Episodes daily 06/24/2015 None rash Limitation on Activities does not limit activities 06/24/2015 None rash Triggers no known triggers 06/24/2015 None rash Pertinent Findings itching 06/24/2015 None knee pain Location on the right 06/24/2015 None knee pain Quality dull pain 06/24/2015 None knee pain Quality popping 06/24/2015 None knee pain Quality catching 06/24/2015 None knee pain Quality intermittent 06/24/2015 None knee pain Onset of Symptom 10 years ago 06/24/2015 None knee pain Severity moderate 06/24/2015 None knee pain Limitation on Activities allows weight bearing activity 06/24/2015 None knee pain Limitation on Activities moderately limits activities 06/24/2015 None knee pain Pertinent Findings locking 06/24/2015 None knee pain Frequency of Episodes unchanged 06/24/2015 None knee pain Significant Medical Conditions degenerative joint disease 06/24/2015 None knee pain Mechanism of injury low energy 06/24/2015 None ~generic Quality chronic 02/26/2015 anxiety/depression after the loss of her this year from Pancreatic cancer - ~generic Severity mild 02/26/2015 None back pain Location lumbar-sacral spine 02/26/2015 None back pain Quality intermittent 02/26/2015 None back pain Quality improving 02/26/2015 - with physical therapy - pt has had improved pain in the past 1-2 weeks - back pain Onset and Resolution gradual in onset 02/26/2015 after pulling, lifting her - back pain Triggers bending 02/26/2015 None back pain Triggers lifting 02/26/2015 None back pain Triggers twisting 02/26/2015 None back pain Alleviating Factors heat 02/26/2015 None back pain Alleviating Factors physical therapy 02/26/2015 None back pain Alleviating Factors stretching 02/26/2015 None back pain Initial treatment physical therapy 02/26/2015 None back pain Initial treatment medication 02/26/2015 None back pain Initial treatment heat 02/26/2015 None Advance Directives No Advance Directive data Encounters Encounter Performer Location Codes Date EST. PATIENT, LEVEL III Diagnosis: Acute laryngopharyngitis[ICD10: J06.0] Diagnosis: Other allergic rhinitis[ICD10: J30.89] Su Walton MD, [facility] CPT-4: 43814 11/17/2017 ([id number]) [id number] EST. PATIENT, LEVEL III Diagnosis: Generalized anxiety disorder[ICD10: F41.1] Diagnosis: Actinic keratosis[ICD10: L57.0] Alina Walton MD, [facility] CPT- 4: 49249 09/02/2017 ([id number]) [id number] EST. PATIENT, LEVEL IV Diagnosis: Allergic rhinitis due to pollen[ICD10: J30.1] Diagnosis: Generalized anxiety disorder[ICD10: F41.1] Alina Walton MD, [facility] CPT-4: 76401 03/04/2017 ([id number]) [id number] EST. PATIENT, LEVEL III Diagnosis: Localized swelling, mass and lump, head[ICD10: R22.0] Allie Walton MD, [facility] CPT-4: 50979 01/21/2017 [id number] EST. PATIENT, LEVEL III Diagnosis: Acute laryngopharyngitis[ICD10: J06.0] Diagnosis: Other allergic rhinitis[ICD10: J30.89] Su Walton MD, [facility] CPT-4: 84104 12/29/2016 ([id number]) [id number] EST. PATIENT, LEVEL IV Diagnosis: Generalized anxiety disorder[ICD10: F41.1] Diagnosis: Rash and other nonspecific skin eruption[ICD10: R21] Diagnosis: Cardiac murmur, unspecified[ICD10: R01.1] Allie Walton MD, [facility] CPT-4: 78663 07/31/2016 ([id number]) [id number] EST. PATIENT, LEVEL III Diagnosis: Ingrowing nail[ICD10: L60.0] Diagnosis: Allergic rhinitis due to pollen[ICD10: J30.1] Diagnosis: Generalized anxiety disorder[ICD10: F41.1] Allie Walton MD, [facility] CPT-4: 76360 01/27/2016 ([id number]) 38924 EST. PATIENT, LEVEL III Diagnosis: Sebaceous cyst[ICD10: L72.3] Diagnosis: Other seborrheic keratosis[ICD10: L82.1] Alina Walton MD, [facility] CPT-4: 61595 08/12/2015 ([id number]) 23019 EST. PATIENT, LEVEL III Diagnosis: EDEMA[ICD9: 782.3] Diagnosis: Rash[ICD9: 782.1] Allie Walton MD, [facility] CPT-4: 62640 06/24/2015 ([id number]) PREV VISIT NEW AGE 40-64 Diagnosis: PREVENTIVE PHYSICAL EXAM[ICD9: V70.0] Alian Walton MD, [facility] CPT-4: 79596 02/26/2015 Plan of Care Planned Activity Notes Codes Status Date Patient Education: Patient Medication Summary Completed 11/17/2017 Appointment: All[phone] [place] ([facility] min) Complex 10/08/2017 Patient Education: Patient Medication Summary Completed 10/08/2017 Appointment: Alina Walton WPtel: [facility] [place] (15 min) Moderate 09/02/2017 Patient Education: Patient Medication Summary Completed 09/02/2017 Appointment: Alina Wlaton WPtel: [facility] [place] (15 min) Moderate 03/04/2017 Patient Education: Patient Medication Summary Completed 03/04/2017 Appointment: Allie Faith WPtel: [phone] [phone] (30 min) Complex 01/21/2017 Patient Education: Patient Medication Summary Completed 01/21/2017 App[facility]ment: [phone] ([facility] min) Complex 12/29/2016 Patient Education: Patient Medication Summary Completed 12/29/2016 Appointment: Allie Faith WPtel: [phone] [phone] (15 min) Moderate 07/31/2016 Patient Education: Patient Medication Summary Completed 07/31/2016 Appointment: (30 min) Complex 01/27/2016 Patient Education: Patient Medication Summary Completed 01/27/2016 Appointment: Alina Walton WPtel: [facility] (15 min) Moderate 08/12/2015 Patient Education: Patient Medication Summary Completed 08/12/2015 Care Plan: Referral Order SNOMED-CT : [id number] Ordered 08/12/2015 Appointment: (30 min) Complex 06/24/2015 Patient Education: Patient Medication Summary Completed 06/24/2015 Care Plan: Som CORBETT RTS Pending 06/24/2015 Patient Education: Patient Medication Summary Completed 02/26/2015 Referral: Nicholas Kulkarni [address] [facility] [place] Referral Appointment Requested Instructions No Instructions
--- OUTSIDE RECORDS SUMMARY | 2018-03-30 10:03 | XMS REPORT | CCD ---
Author Author Alina Walton Organization Alina Walton MD, [facility] Address [address] [place] [address] Phone Care Team Providers Care Senior Java Programmer Name Role Phone PP Unavailable CCM Unavailable Summary Purpose Interface Exchange Insurance Providers Payer name Policy type / Coverage type Covered constitution party ID Effective Begin Date Effective End Date WPS Medicare Part B [id number] Unknown [employer] [id number] 2016 Unknown Family history Runs in the family Diagnosis Age At Onset Heart disease Unknown Social History Social History Element Codes Description Effective Dates Employment Unknown Retired used to teach literature classes at [employer] 01/21/2017 Marital status Unknown 02/26/2015 Living arrangements Unknown House 02/26/[address]: [id number] Has never smoked or chewed tobacco 02/26/2015 [...] Instructions Vagifem 10 mcg vaginal tablet RxNorm: 520714 Tablet(s) INSERT ONE TABLET VAGINALLY EVERY 3 TO 4 DAYS 06/18/2017 Inactive Vagifem 10 mcg vaginal tablet RxNorm: 588092 INSERT ONE TABLET VAGINALLY EVERY 3 TO 4 DAYS 06/18/2017 06/17/2017 Inactive mometasone 0.1 % topical cream RxNorm: 773979 1 Application TOP 03/04/2017 07/01/2017 Inactive APPLY THIN AMOUNT TO RASH ON ARMS escitalopram 10 mg tablet RxNorm: 788729 1/2 Tablet(s) PO daily 03/04/2017 09/01/2017 Inactive escitalopram 10 mg tablet RxNorm: 030449 1/2 Tablet(s) PO daily 03/04/2017 03/03/2017 Inactive Sudafed 12 Hour 120 mg tablet,extended release RxNorm: 3815650 TAKE ONE TABLET BY MOUTH TWICE A DAY NEEDED 02/24/201704/2017 Inactive Sudafed 12 Hour 120 mg tablet,extended release RxNorm: 2996122 1 Tablet(s) PO BID as needed 02/22/2017 02/23/2017 Inactive amoxicillin 500 mg tablet RxNorm: 934379 1 Tablet(s) PO TID 04/201701/04/2017 Inactive Sudafed 12 Hour 120 mg tablet,extended release RxNorm: 2670286 1 Tablet(s) PO BID as needed 12/29/2016 02/21/2017 Inactive medroxyprogesterone 10 mg tablet RxNorm: 7116387 TAKE ONE TABLET BY MOUTH DAILY 09/28/2016 11/06/2016 Inactive escitalopram 10 mg tablet RxNorm: 640098 1/2 Tablet(s) PO daily 07/31/2016 01/14/2017 Inactive Diflucan 150 mg tablet RxNorm: 869515 1 Tablet(s) PO daily 04/201608/06/2016 Inactive medroxyprogesterone 10 mg tablet RxNorm: 5815958 1 Tablet(s) PO daily 06/26/2016 07/05/2016 Inactive Vagifem 10 mcg vaginal tablet RxNorm: 319210 1 Tablet(s) VAG (Q 3-4 DAYS) 03/19/2016 06/17/2017 Inactive escitalopram 10 mg tablet RxNorm: 793233 1 Tablet(s) PO daily 01/27/2016 07/12/2016 Inactive medroxyprogesterone 10 mg tablet RxNorm: 1058223 1 Tablet(s) PO daily 01/27/2016 02/05/2016 Inactive Xanax 0.25 mg tablet RxNorm: 670218 1-2 Tablet(s) PO Q6 as needed 01/27/2016 09/01/2017 Inactive escitalopram 10 mg tablet RxNorm: 679503 1 Tablet(s) PO daily 01/27/2016 01/26/2016 Inactive Vagifem 10 mcg vaginal tablet RxNorm: 324667 1 Tablet(s) VAG q 3-4 DAYS 12/25/2015 03/18/2016 Inactive pt needs to make an appt mometasone 0.1 % topical cream RxNorm: 206042 1 Application TOP 06/24/2015 08/22/2015 Inactive APPLY THIN AMOUNT TO RASH ON ARMS ketoconazole 2 % topical cream RxNorm: 423330 1 Application TOP BID 06/24/2015 07/23/2015 Inactive Lexapro 5 mg tablet RxNorm: 347260 1 Tablet(s) PO daily 201401/26/2016 Inactive Vagifem 10 mcg vaginal tablet RxNorm: 264499 1 Tablet(s) VAG q 6 DAYS 02/26/2015 12/24/2015 Inactive Culturelle 10 billion cell capsule RxNorm: 141306 1 Capsule(s) PO daily No Start Date Active Fish Oil 1,000 mg capsule RxNorm: 1 Capsule(s) PO BID No Start Date Active Vagifem 10 mcg vaginal tablet RxNorm: 590410 1 Tablet(s) VAG q 5 DAYS No Start Date 02/25/2015 Inactive Xanax 0.25 mg tablet RxNorm: 432821 1 Tablet(s) PO as needed No Start Date 01/26/2016 Inactive Multi Vitamin oral RxNorm: oral No Start Date 07/30/2016 Inactive aspirin 81 mg chewable tablet RxNorm: 342257 Tablet(s) PO No Start Date 09/01/2017 Inactive premarin 0.5% Vaginal cream RxNorm: VAG No Start Date 02/25/2015 Inactive Detrol LA 4 mg capsule,extended release RxNorm: 108182 1 Capsule(s) PO daily No Start Date 02/25/2015 Inactive hydrocodone 5 mg-acetaminophen 325 mg tablet RxNorm: 421576 1 Tablet(s) PO Q4-6H as needed No Start Date 07/30/2016 Inactive Provera 10 mg tablet RxNorm: 7702240 Tablet(s) PO No Start Date 09/01/2017 Inactive Lexapro 20 mg tablet RxNorm: 824906 1 Tablet(s) PO daily No Start Date 02/25/2015 Inactive cyclobenzaprine 10 mg tablet RxNorm: 508566 1 Tablet(s) PO as needed No Start [...] Item Code Result Date C A/B FLU 1828666 Influenza A Scr Negative 11/17/2017 C A/B FLU 0799045 Influenza B Scr Negative 11/17/2017 C A/B FLU 7577107 Influenza Intrp B AG: PRID:PT:NOSE:NOM:IF See Footnote [...] 14.0 g/dl 08/03/2016 Cbc With Differential Ord2 HCT 41.4 % 08/03/2016 Cbc With Differential Ord2 Neut% 47.3 % 08/03/2016 Cbc With Differential Ord2 MCV 90.0 fl 08/03/2016 Cbc With Differential Ord2 Lymph% 35.9 % 08/03/2016 Cbc With Differential Ord2 [place]% 6.7 % 08/03/2016 Cbc With Differential Ord2 MCH 30.4 pg 08/03/2016 Cbc With Differential Ord2 Eos% 9.4 % 08/03/2016 Cbc With Differential Ord2 MCHC 33.8 pg 08/03/2016 Cbc With Differential Ord2 Baso% 0.7 % 08/03/2016 Cbc With Differential Ord2 PLT 206 K/ul 08/03/2016 Cbc With Differential Ord2 Neut ABS# 2.56 K/ul 08/03/2016 Cbc With Differential Ord2 RDW 12.6 % 08/03/2016 Cbc With Differential Ord2 Lymph ABS# 1.94 K/ul 08/03/2016 Cbc With Differential Ord2 [place] ABS# 0.4 K/ul 08/03/2016 Cbc With Differential Ord2 Eos ABS# 0.5 K/ul 08/03/2016 Cbc With Differential Ord2 Baso ABS# 0.0 K/ul 08/03/2016 Comp Metabolic Hsp410 NA 139 mEq/L 08/03/2016 Comp Metabolic Byr608 K 3.7 mEq/L 08/03/2016 Comp Metabolic Kko624 CL 105 mEq/L 08/03/2016 Comp Metabolic Slh654 CO2 26.0 mEq/L 08/03/2016 Comp Metabolic Ahw691 ANION GAP 12 08/03/2016 Comp Metabolic Rrb571 GLUCOSE 90 mg/dL 08/03/2016 Comp Metabolic Iue675 Creat 0.8 mg/dL 08/03/2016 Comp Metabolic Apv251 eGFR 76 ml/min/1.73m2 08/03/2016 Comp Metabolic Kyj734 BUN 14 mg/dL 08/03/2016 Comp Metabolic Gpj153 B/C Ratio 17.5 Ratio 08/03/2016 Comp Metabolic Fii941 CALCIUM 8.9 mg/dL 08/03/2016 Comp Metabolic Fma042 ALK PHOS 69 U/L 08/03/2016 Comp Metabolic Eze870 AST(SGOT) 17 U/L 08/03/2016 Comp Metabolic Vrm013 ALT(SGPT) 19 U/L 08/03/2016 Comp Metabolic Gxg962 BILI T 0.5 mg/dL 08/03/2016 Comp Metabolic Ngn004 ALBUMIN 4.2 g/dL 08/03/2016 Comp Metabolic Hxg173 TPRO 6.5 g/dL 08/03/2016 Comp Metabolic Tbb158 GLOB 2.3 g/dL 08/03/2016 Comp Metabolic Heh718 A/G Ratio 1.8 Ratio 08/03/2016 Comp Metabolic Cwz467 Osmo 278 mOsmo 08/03/2016 Tsh Ord6 hTSH [...] Procedure Codes Date DESTRUCT PREMALG LESION CPT-4: 01486 10/08/2017 Vital Signs Date Vital 11/17/2017 Blood Pressure 1: 126/72 Code : 8480-6 BMI: 26.6 Code : 57697-3 Heart Rate 1 : 74 bpm Height: 5'8" SpO2: 96% Temperature: 37.1 (C) / 98.7 (F) Weight: 175 lbs 10/08/2017 Blood Pressure 1: 136/82 Code : 8480-6 Heart Rate 1: 67 bpm Height: 5'8" SpO2: 97% Weight: 09/02/2017 Blood Pressure 1: 122/70 Code : 8480-6 BMI: 26.5 Code : 63365-8 Heart Rate 1 : 62 bpm Height: 5'8" SpO2: 97% Weight: 174 lbs 8 oz 03/04/2017 Blood Pressure 1: 132/72 Code : 8480-6 BMI: 27.4 Code : 22642-0 Heart Rate 1 : 61 bpm Height: 5'8" SpO2: 95% Weight: 180 lbs 01/21/2017 Blood Pressure 1: 12672 Code : 8480-6 BMI: 27.7 Code : 80203-9 Heart Rate 1 : 71 bpm Height: 5'8" SpO2: 97% Weight: 182 lbs 12/29/2016 Blood Pressure 1: 12672 Code : 8480-6 BMI: 27.5 Code : 01551-7 Heart Rate 1 : 74 bpm Height: 5'8" SpO2: 97% Temperature: 36.8 (C) / 98.3 (F) Weight: 181 lbs 07/31/2016 Blood Pressure 1: 128/78 Code : 8480-6 BMI: 27.2 Code : 57892-2 Heart Rate 1 : 64 bpm Height: 5'8" SpO2: 96% Weight: 179 lbs 01/27/2016 Blood Pressure 1: 128/82 Code : 8480-6 BMI: 27.1 Code : 90251-4 Heart Rate 1 : 87 bpm Height: 5'8" SpO2: 96% Weight: 178 lbs 08/12/2015 Blood Pressure 1: 126/80 Code : 8480-6 BMI: 26.9 Code : 82579-6 Heart Rate 1 : 70 bpm Height: 5'8" SpO2: 98% Weight: 177 lbs 06/24/2015 Blood Pressure 1: 112/60 Code : 8480-6 BMI: 26.3 Code : 02430-3 Heart Rate 1 : 69 bpm Height: 5'8" SpO2: 97% Weight: 173 lbs 02/26/2015 Blood Pressure 1: 130/82 Code : 8480-6 BMI: 27.1 Code : 15159-9 Heart Rate 1 : 80 bpm Height: [...] Other allergic rhinitis[ICD10: J30.89] Su Walton MD, [facility] CPT-4: 90481 11/17/2017 ([id number]) 04511 EST. PATIENT, LEVEL III Diagnosis: Generalized anxiety disorder[ICD10: F41.1] Diagnosis: Actinic keratosis[ICD10: L57.0] Alina Walton MD, [facility] CPT- 4: 97803 09/02/2017 ([id number]) 18846 EST. PATIENT, LEVEL IV Diagnosis: Allergic rhinitis due to pollen[ICD10: J30.1] Diagnosis: Generalized anxiety disorder[ICD10: F41.1] Alina Walton MD, [facility] CPT-4: 41158 03/04/2017 ([id number]) 91399 EST. PATIENT, LEVEL III Diagnosis: Localized swelling, mass and lump, head[ICD10: R22.0] Allie Walton MD, [facility] CPT-4: 67478 01/21/2017 79772 EST. PATIENT, LEVEL III Diagnosis: Acute laryngopharyngitis[ICD10: J06.0] Diagnosis: Other allergic rhinitis[ICD10: J30.89] Su Walton MD, [facility] CPT-4: 19037 12/29/2016 ([id number]) 27923 EST. PATIENT, LEVEL IV Diagnosis: Generalized anxiety disorder[ICD10: F41.1] Diagnosis: Rash and other nonspecific skin eruption[ICD10: R21] Diagnosis: Cardiac murmur, unspecified[ICD10: R01.1] Allie Walton MD, [facility] CPT-4: 87026 07/31/2016 ([id number]) 93757 EST. PATIENT, LEVEL III Diagnosis: Ingrowing nail[ICD10: L60.0] Diagnosis: Allergic rhinitis due to pollen[ICD10: J30.1] Diagnosis: Generalized anxiety disorder[ICD10: F41.1] Allie Walton MD, [facility] CPT-4: 60110 01/27/2016 ([id number]) 94081 EST. PATIENT, LEVEL III Diagnosis: Sebaceous cyst[ICD10: L72.3] Diagnosis: Other seborrheic keratosis[ICD10: L82.1] Alina Walton MD, [facility] CPT-4: 30631 08/12/2015 ([id number]) 71066 EST. PATIENT, LEVEL III Diagnosis: EDEMA[ICD9: 782.3] Diagnosis: Rash[ICD9: 782.1] Allie Walton MD, [facility] CPT-4: 93425 06/24/2015 ([id number]) PREV VISIT NEW AGE 40-64 Diagnosis: PREVENTIVE PHYSICAL EXAM[ICD9: V70.0] Alina Walton MD, [facility] CPT-4: 53413 02/26/2015 Plan of Care Planned Activity Notes Codes Status Date Appointment: Su Galindo [facility] ([facility] min[facility] Complex 11/17/2017 Patient Education: Patient Medication Summary Completed 11/17/2017 Appointment: Allie Faith WPtel: [phone] [place] (30 min) Complex 10/08/2017 Patient Education: Patient Medication Summary Completed 10/08/2017 [facility] [phone] [facility] ([facility] min) Moderate 09/02/2017 Patient Education: Patient Medication Summary Completed 09/02/2017 App[facility]ment: [facility] [phone] [facility] (15 min) Moderate 03/04/2017 Patient Education: Patient Medication Summary Completed 03/04/2017 Appointment: Allie Faith WPtel: [phone] [phone] [place] (30 min) Complex 01/21/2017 Patient Education: Patient Medication Summary Completed 01/21/2017 Appointment: Su Galindo WPtel: [phone] [facility] [place] (30 min) Complex 12/29/2016 Patient Education: Patient Medication Summary Completed 12/29/2016 Appointment: Allie Faith WPtel: [phone] [phone] [place] (15 min) Moderate 07/31/2016 Patient Education: Patient Medication Summary Completed 07/31/2016 Appointment: (30 min) Complex 01/27/2016 Patient Education: Patient Medication Summary Completed 01/27/2016 Appointment: [facility] [phone] [facility] (15 min) Moderate 08/12/2015 Patient Education: Patient Medication Summary Completed 08/12/2015 Care Plan: Referral Order SNOMED-CT : [id number] Ordered 08/12/2015 Appointment: (30 min) Complex 06/24/2015 Patient Education: Patient Medication Summary Completed 06/24/2015 Care Plan: Som CORBETT RTS Pending 06/24/2015 Patient Education: Patient Medication Summary Completed 02/26/2015 Referral: Nicholas Kulkarni [address] [facility] Referral Appointment Requested Instructions No Instructions
--- OUTSIDE RECORDS SUMMARY | 2018-03-30 10:04 | XMS REPORT | CCD ---
Author Author Alina Walton Organization Alina Walton MD, [facility] Address [address] [place] [address] Phone Care Team Providers Care Machine Candle Molder Name Role Phone PP Unavailable CCM Unavailable Summary Purpose Interface Exchange Insurance Providers Payer name Policy type / Coverage type Covered green party ID Effective Begin Date Effective End Date WPS Medicare Part B [id number] Unknown [employer] [id number] 2016 Unknown Family history Runs in the family Diagnosis Age At Onset Heart disease Unknown Social History Social History Element Codes Description Effective Dates Employment Unknown Retired used to teach literature classes at [employer] 01/21/2017 Marital status Unknown 02/26/2015 Living arrangements Unknown House 02/26/[address]: 970923860 Has never smoked or chewed tobacco 02/26/2015 [...] Start Date Stop Date Status Fill Instructions medroxyprogesterone 10 mg tablet RxNorm: 6379775 1 Tablet(s) PO daily TAKE ONE TABLET BY MOUTH DAILY 12/13/20172017 Active Vagifem 10 mcg vaginal tablet RxNorm: 905380 Tablet(s) INSERT ONE TABLET VAGINALLY EVERY 3 TO 4 DAYS 06/18/2017 Inactive Vagifem 10 mcg vaginal tablet RxNorm: 287556 INSERT ONE TABLET VAGINALLY EVERY 3 TO 4 DAYS 06/18/2017 06/17/2017 Inactive mometasone 0.1 % topical cream RxNorm: 542632 1 Application TOP 03/04/2017 07/01/2017 Inactive APPLY THIN AMOUNT TO RASH ON ARMS escitalopram 10 mg tablet RxNorm: 514310 1/2 Tablet(s) PO daily 03/04/2017 09/01/2017 Inactive escitalopram 10 mg tablet RxNorm: 734898 1/2 Tablet(s) PO daily 03/04/2017 03/03/2017 Inactive Sudafed 12 Hour 120 mg tablet,extended release RxNorm: 6260156 TAKE ONE TABLET BY MOUTH TWICE A DAY NEEDED 02/24/201704/2017 Inactive Sudafed 12 Hour 120 mg tablet,extended release RxNorm: 5352572 1 Tablet(s) PO BID as needed 02/22/2017 02/23/2017 Inactive amoxicillin 500 mg tablet RxNorm: 090647 1 Tablet(s) PO TID 04/201701/04/2017 Inactive Sudafed 12 Hour 120 mg tablet,extended release RxNorm: 1472100 1 Tablet(s) PO BID as needed 12/29/2016 02/21/2017 Inactive medroxyprogesterone 10 mg tablet RxNorm: 8452807 TAKE ONE TABLET BY MOUTH DAILY 09/28/2016 11/06/2016 Inactive escitalopram 10 mg tablet RxNorm: 535622 1/2 Tablet(s) PO daily 07/31/2016 01/14/2017 Inactive Diflucan 150 mg tablet RxNorm: 361882 1 Tablet(s) PO daily 04/201608/06/2016 Inactive medroxyprogesterone 10 mg tablet RxNorm: 0796162 1 Tablet(s) PO daily 06/26/2016 07/05/2016 Inactive Vagifem 10 mcg vaginal tablet RxNorm: 774192 1 Tablet(s) VAG (Q 3-4 DAYS) 03/19/2016 06/17/2017 Inactive escitalopram 10 mg tablet RxNorm: 099293 1 Tablet(s) PO daily 01/27/2016 07/12/2016 Inactive medroxyprogesterone 10 mg tablet RxNorm: 6042445 1 Tablet(s) PO daily 01/27/2016 02/05/2016 Inactive Xanax 0.25 mg tablet RxNorm: 941003 1-2 Tablet(s) PO Q6 as needed 01/27/2016 09/01/2017 Inactive escitalopram 10 mg tablet RxNorm: 622353 1 Tablet(s) PO daily 01/27/2016 01/26/2016 Inactive Vagifem 10 mcg vaginal tablet RxNorm: 795159 1 Tablet(s) VAG q 3-4 DAYS 12/25/2015 03/18/2016 Inactive pt needs to make an appt mometasone 0.1 % topical cream RxNorm: 681724 1 Application TOP 06/24/2015 08/22/2015 Inactive APPLY THIN AMOUNT TO RASH ON ARMS ketoconazole 2 % topical cream RxNorm: 587824 1 Application TOP BID 06/24/2015 07/23/2015 Inactive Lexapro 5 mg tablet RxNorm: 407534 1 Tablet(s) PO daily 201401/26/2016 Inactive Vagifem 10 mcg vaginal tablet RxNorm: 790227 1 Tablet(s) VAG q 6 DAYS 02/26/2015 12/24/2015 Inactive Culturelle 10 billion cell capsule RxNorm: 091681 1 Capsule(s) PO daily No Start Date Active Fish Oil 1,000 mg capsule RxNorm: 1 Capsule(s) PO BID No Start Date Active Vagifem 10 mcg vaginal tablet RxNorm: 750585 1 Tablet(s) VAG q 5 DAYS No Start Date 02/25/2015 Inactive Xanax 0.25 mg tablet RxNorm: 774444 1 Tablet(s) PO as needed No Start Date 01/26/2016 Inactive Multi Vitamin oral RxNorm: oral No Start Date 07/30/2016 Inactive aspirin 81 mg chewable tablet RxNorm: 474171 Tablet(s) PO No Start Date 09/01/2017 Inactive premarin 0.5% Vaginal cream RxNorm: VAG No Start Date 02/25/2015 Inactive Detrol LA 4 mg capsule,extended release RxNorm: 380672 1 Capsule(s) PO daily No Start Date 02/25/2015 Inactive hydrocodone 5 mg-acetaminophen 325 mg tablet RxNorm: 719467 1 Tablet(s) PO Q4-6H as needed No Start Date 07/30/2016 Inactive Provera 10 mg tablet RxNorm: 1036442 Tablet(s) PO No Start Date 09/01/2017 Inactive Lexapro 20 mg tablet RxNorm: 690936 1 Tablet(s) PO daily No Start Date 02/25/2015 Inactive cyclobenzaprine 10 mg tablet RxNorm: 574537 1 Tablet(s) PO as needed No Start [...] Item Code Result Date C A/B FLU 2934016 Influenza A Scr Negative 11/17/2017 C A/B FLU 5365320 Influenza B Scr Negative 11/17/2017 C A/B FLU 2706917 Influenza Intrp B AG: PRID:PT:NOSE:NOM:IF See Footnote [...] 35.9 % 08/03/2016 Cbc With Differential Ord2 [place]% 6.7 % 08/03/2016 Cbc With Differential Ord2 [...] 1.94 K/ul 08/03/2016 Cbc With Differential Ord2 [place] ABS# 0.4 K/ul 08/03/2016 Cbc With Differential Ord2 Eos ABS# 0.5 K/ul 08/03/2016 Cbc With Differential Ord2 Baso ABS# 0.0 K/ul 08/03/2016 Comp Metabolic Say865 NA 139 mEq/L 08/03/2016 Comp Metabolic Fly978 K 3.7 mEq/L 08/03/2016 Comp Metabolic Hvv756 CL 105 mEq/L 08/03/2016 Comp Metabolic Wgt881 CO2 26.0 mEq/L 08/03/2016 Comp Metabolic Myx193 ANION GAP 12 08/03/2016 Comp Metabolic Xpm677 GLUCOSE 90 mg/dL 08/03/2016 Comp Metabolic Flb935 Creat 0.8 mg/dL 08/03/2016 Comp Metabolic Xej108 eGFR 76 ml/min/1.73m2 08/03/2016 Comp Metabolic Rzq944 BUN 14 mg/dL 08/03/2016 Comp Metabolic Dzj409 B/C Ratio 17.5 Ratio 08/03/2016 Comp Metabolic Jls559 CALCIUM 8.9 mg/dL 08/03/2016 Comp Metabolic Zmj066 ALK PHOS 69 U/L 08/03/2016 Comp Metabolic Umt620 AST(SGOT) 17 U/L 08/03/2016 Comp Metabolic Gnr697 ALT(SGPT) 19 U/L 08/03/2016 Comp Metabolic Div947 BILI T 0.5 mg/dL 08/03/2016 Comp Metabolic Neh054 ALBUMIN 4.2 g/dL 08/03/2016 Comp Metabolic Qsz173 TPRO 6.5 g/dL 08/03/2016 Comp Metabolic Iia499 GLOB 2.3 g/dL 08/03/2016 Comp Metabolic Tmn529 A/G Ratio 1.8 Ratio 08/03/2016 Comp Metabolic Tmv818 Osmo 278 mOsmo 08/03/2016 Tsh Ord6 hTSH [...] lips 09/02/2017 None Full Exam - General 1994 Ears/Nose/Throat lips/teeth/gingiva Overall: normal dentition 09/02/2017 None [...] Procedure Codes Date DESTRUCT PREMALG LESION CPT-4: 42535 10/08/2017 Vital Signs Date Vital 11/17/2017 Blood Pressure 1: 126/72 Code : 8480-6 BMI: 26.6 Code : 92609-0 Heart Rate 1 : 74 bpm Height: 5'8" SpO2: 96% Temperature: 37.1 (C) / 98.7 (F) Weight: 175 lbs 10/08/2017 Blood Pressure 1: 136/82 Code : 8480-6 Heart Rate 1: 67 bpm Height: 5'8" SpO2: 97% Weight: 09/02/2017 Blood Pressure 1: 122/70 Code : 8480-6 BMI: 26.5 Code : 53992-5 Heart Rate 1 : 62 bpm Height: 5'8" SpO2: 97% Weight: 174 lbs 8 oz 03/04/2017 Blood Pressure 1: 132/72 Code : 8480-6 BMI: 27.4 Code : 12695-6 Heart Rate 1 : 61 bpm Height: 5'8" SpO2: 95% Weight: 180 lbs 01/21/2017 Blood Pressure 1: 126/72 Code : 8480-6 BMI: 27.7 Code : 08378-2 Heart Rate 1 : 71 bpm Height: 5'8" SpO2: 97% Weight: 182 lbs 12/29/2016 Blood Pressure 1: 126/72 Code : 8480-6 BMI: 27.5 Code : 40631-7 Heart Rate 1 : 74 bpm Height: 5'8" SpO2: 97% Temperature: 36.8 (C) / 98.3 (F) Weight: 181 lbs 07/31/2016 Blood Pressure 1: 128/78 Code : 8480-6 BMI: 27.2 Code : 74714-5 Heart Rate 1 : 64 bpm Height: 5'8" SpO2: 96% Weight: 179 lbs 01/27/2016 Blood Pressure 1: 128/82 Code : 8480-6 BMI: 27.1 Code : 76790-2 Heart Rate 1 : 87 bpm Height: 5'8" SpO2: 96% Weight: 178 lbs 08/12/2015 Blood Pressure 1: 126/80 Code : 8480-6 BMI: 26.9 Code : 64768-1 Heart Rate 1 : 70 bpm Height: 5'8" SpO2: 98% Weight: 177 lbs 06/24/2015 Blood Pressure 1: 112/60 Code : 8480-6 BMI: 26.3 Code : 77867-4 Heart Rate 1 : 69 bpm Height: 5'8" SpO2: 97% Weight: 173 lbs 02/26/2015 Blood Pressure 1: 130/82 Code : 8480-6 BMI: 27.1 Code : 63879-2 Heart Rate 1 : 80 bpm Height: [...] Other allergic rhinitis[ICD10: J30.89] Su Walton MD, [facility] CPT-4: 78706 11/17/2017 ([id number]) 88003 EST. PATIENT, LEVEL III Diagnosis: Generalized anxiety disorder[ICD10: F41.1] Diagnosis: Actinic keratosis[ICD10: L57.0] Alina Walton MD, [facility] CPT- 4: 26971 09/02/[id number]) 23857 EST. PATIENT, LEVEL IV Diagnosis: Allergic rhinitis due to pollen[ICD10: J30.1] Diagnosis: Generalized anxiety disorder[ICD10: F41.1] [facility] CPT-4: 07713 03/04/2017 ([id number]) 66268 EST. PATIENT, LEVEL III Diagnosis: Localized swelling, mass and lump, head[ICD10: R22.0] [facility] CPT-4: 93564 01/21/2017 54661 EST. PATIENT, LEVEL III Diagnosis: Acute laryngopharyngitis[ICD10: J06.0] Diagnosis: Other allergic rhinitis[ICD10: J30.89] Su Walton MD, [facility] CPT-4: 17578 12/29/2016 ([id number]) 14892 EST. PATIENT, LEVEL IV Diagnosis: Generalized anxiety disorder[ICD10: F41.1] Diagnosis: Rash and other nonspecific skin eruption[ICD10: R21] Diagnosis: Cardiac murmur, unspecified[ICD10: R01.1] Allie Walton MD, [facility] CPT-4: 16195 07/31/2016 ([id number]) 67047 EST. PATIENT, LEVEL III Diagnosis: Ingrowing nail[ICD10: L60.0] Diagnosis: Allergic rhinitis due to pollen[ICD10: J30.1] Diagnosis: Generalized anxiety disorder[ICD10: F41.1] Allie Walton MD, [facility] CPT-4: 17525 01/27/2016 ([id number]) 41856 EST. PATIENT, LEVEL III Diagnosis: Sebaceous cyst[ICD10: L72.3] Diagnosis: Other seborrheic keratosis[ICD10: L82.1] Alina Walton MD, [facility] CPT-4: 30372 08/12/2015 ([id number]) 01351 EST. PATIENT, LEVEL III Diagnosis: EDEMA[ICD9: 782.3] Diagnosis: Rash[ICD9: 782.1] Allie Walton MD, [facility] CPT-4: 42994 06/24/2015 ([id number]) PREV VISIT NEW AGE 40-64 Diagnosis: PREVENTIVE PHYSICAL EXAM[ICD9: V70.0] Alina Walton MD, [facility] CPT-4: 98213 02/26/2015 Plan of Care Planned Activity Notes Codes Status Date Visit Plan: URI - Pt advised to increase fluids, vitamin C. Discussed natural and expected course of this diagnosis and need to alert me if symptoms do not follow expected course, or if any worse. RX sent to patient' s pharmacy. Allergies - chronic - recommended pt to use allergy medication as prescribed. Pt has been counseled as to the appropriate use of the medication. Pt to call if allergy symptoms are not controlled with the medication. If using nasal spray, instructions as follows: Nasal spray- use twice daily, one spray per nostril twice daily, after 30 minutes, rinse out nose with saline spray.. Use opposite hand per nostril to spray in the nasal steroid allergy spray. 11/17/2017 Appointment: Su Galindo WPtel: [phone] [facility] (30 min) Complex 11/17/2017 Patient Education: Patient Medication Summary Completed 11/17/2017 Visit Plan: AK right anterior thigh-wound Instructions - Pt was instructed to keep the wound clean, wash with antibacterial soap, use triple antibiotic ointment, call if redness, pustular drainage, or any other acute concerns. 10/08/2017 Appointment: Allie Faith WPtel: [phone] [phone] [place] (30 min) Complex 10/08/2017 Patient Education: Patient Medication Summary Completed 10/08/2017 Visit Plan: Actinic keratosis - cryotherapy of arms bilaterally - Anxiety - monitor symptoms - pt stopped her home medications. 09/02/2017 Appointment: Alina Walton WPtel: [facility][note 3]6 [facility] (15 min) Moderate 09/02/2017 Patient Education: Patient Medication Summary Completed 09/02/2017 Visit Plan: Chronic Depression and anxiety - the pt has symptoms of chronic anxiety and depression that have been fairly well controlled since the last office visit. The pt has expected periods of exacerbation with abatement of the symptoms with change in situational exposure. No change in current medications. Allergies - chronic - recommended pt to use allergy medication as prescribed. Pt has been counseled as to the appropriate use of the medication. Pt to call if allergy symptoms are not controlled with the medication. If using nasal spray, instructions as follows: Nasal spray- use twice daily, one spray per nostril twice daily, after 30 minutes, rinse out nose with saline spray.. Use opposite hand per nostril to spray in the nasal steroid allergy spray. 03/04/2017 Appointment: Alina Walton WPtel: [phone] [facility] (15 min) Moderate 03/04/2017 Patient Education: Patient Medication Summary Completed 03/04/2017 Visit Plan: Recent fall-laceration healed-contusion left [id number] further treatment indicated 01/21/2017 Appointment: Allie Faith WPtel: [facility][note 3]5 [phone] (30 min) Complex 01/21/2017 Patient Education: Patient Medication Summary Completed 01/21/2017 Visit Plan: URI - Pt advised to increase fluids, vitamin C. Discussed natural and expected course of this diagnosis and need to alert me if symptoms do not follow expected course, or if any worse. RX sent to patient' s pharmacy. Allergies - chronic - recommended pt to use allergy medication as prescribed. Pt has been counseled as to the appropriate use of the medication. Pt to call if allergy symptoms are not controlled with the medication. If using nasal spray, instructions as follows: Nasal spray- use twice daily, one spray per nostril twice daily, after 30 minutes, rinse out nose with saline spray.. Use opposite hand per nostril to spray in the nasal steroid allergy spray. 12/29/2016 Appointment: Su Galindo WPtel: [facility][note 3]5 [facility] (30 min) Complex 12/29/2016 Patient Education: Patient Medication Summary Completed 12/29/2016 Visit Plan: Chronic anxiety-well controlled with lexapro- no change in treatment Rash-chest, back and upper arms-will treat with oral diflucan-instructed patient to call if rash does not resolve Heart murmur- signficant family history of cardiovascular disease-check labs including cholesterol and schedule echocardiogram 07/31/2016 Visit Plan: Chronic anxiety-well controlled with lexapro- no change in treatment Rash-chest, back and upper arms-will treat with oral diflucan-instructed patient to call if rash does not resolve Heart murmur- signficant family history of cardiovascular disease-check labs including cholesterol and schedule echocardiogram 07/31/2016 Appointment: Allie Faith WPtel: [facility][note 3]5 [phone] (15 min) Moderate 07/31/2016 Patient Education: Patient Medication Summary Completed 07/31/2016 Visit Plan: Ingrowing toenail-right medial hallux-wedge resection today in the office-discussed epsom salt soaks-instructed patient to call if redness, warmth, drainage or increase pain. Patient verbalized understanding of plan. Allergies-neck pain-suspect neck pain is due to drainage- recommend daily anti histamine-call if symptoms persist or worsen Anxiety-well controlled-no change in treatment 01/27/2016 Appointment: (30 min) Complex 01/27/2016 Patient Education: Patient Medication Summary Completed 01/27/2016 Visit Plan: Sebaceous cyst of scalp - referral for removal - Pt to see Dr. Kulkarni for removal of the lesion. Seborrheic keratosis - no treatment needed at this time, the lesions are not inflamed. 08/12/2015 Appointment: Alina Walton WPtel: [address] [place], [place] [id number] (15 min) Moderate 08/12/2015 Patient Education: Patient Medication Summary Completed 08/12/2015 Care Plan: Referral Order SNOMED-CT : [id number] Ordered 08/12/2015 Visit Plan: Edema - pt has been advised to elevate legs to prevent dependent edema, compression has been recommended to help to naturally decrease peripheral edema. Diuretic use has been discussed and pt has been instructed in appropriate use of such medication as necessary to further attempt to reduce peripheral edema. Rash-cultured today in the office-start anti fungal/steroid cream combo-call if rash worsens or does not resolve 06/24/2015 Appointment: (30 min) Complex 06/24/2015 Patient Education: Patient Medication Summary Completed 06/24/2015 Care Plan: Som CORBETT R[facility] Pending 06/24/2015 Visit Plan: .Well Adult - pt was counseled about diet, exercise, and encouraged to follow a heart healthy diet and increase activity level. The patient was instructed to RTC yearly for well adult exams and PRN for acute illnesses. The pt was also instructed to have yearly labs for check of cholesterol, thyroid, chem panel, CBC, and renal functioning. Chronic Depression and anxiety - the pt has symptoms of chronic anxiety and depression that have been fairly well controlled since the last office visit. The pt has expected periods of exacerbation with abatement of the symptoms with change in situational exposure. No change in current medications Back pain - recommended pt to continue with physical therapy for the next 2-3 weeks. 02/26/2015 Patient Education: Patient Medication Summary Completed 02/26/2015 Referral: Nicholas Kulkarni [address] [facility] Referral Appointment Requested Instructions Comment . Ingrowing toenail-right medial hallux-wedge resection today in the office-discussed epsom salt soaks-instructed patient to call if redness, warmth, drainage or increase pain. Patient verbalized understanding of plan. Allergies-neck pain-suspect neck pain is due to drainage-recommend daily anti histamine-call if symptoms persist or worsen Anxiety-well controlled-no change in treatment . URI - Pt advised to increase fluids, vitamin C. Discussed natural and expected course of this diagnosis and need to alert me if symptoms do not follow expected course, or if any worse. RX sent to patient's pharmacy. Allergies - chronic - recommended pt to use allergy medication as prescribed. Pt has been counseled as to the appropriate use of the medication. Pt to call if allergy symptoms are not controlled with the medication. If using nasal spray, instructions as follows: Nasal spray- use twice daily, one spray per nostril twice daily, after 30 minutes, rinse out nose with saline spray.. Use opposite hand per nostril to spray in the nasal steroid allergy spray. . AK right anterior thigh-wound Instructions - Pt was instructed to keep the wound clean, wash with antibacterial soap, use triple antibiotic ointment, call if redness, pustular drainage, or any other acute concerns. [facility]-CALL IF RASH DOES NOT RESOLVE OR IF ANY WORSE . Chronic anxiety-well controlled with lexapro-no change in treatment Rash-chest, back and upper arms-will treat with oral diflucan-instructed patient to call if rash does not resolve Heart murmur-signficant family history of cardiovascular disease-check labs including cholesterol and schedule echocardiogram SCHEDULE ECHO -OUT OF TOWN UNTIL July DIFLUCAN-CALL IF RASH DOES NOT RESOLVE OR IF ANY WORSE . Chronic anxiety-well controlled with lexapro-no change in treatment Rash-chest, back and upper arms-will treat with oral diflucan-instructed patient to call if rash does not resolve Heart murmur-signficant family history of cardiovascular disease-check labs including cholesterol and schedule echocardiogram . Chronic Depression and anxiety - the pt has symptoms of chronic anxiety and depression that have been fairly well controlled since the last office visit. The pt has expected periods of exacerbation with abatement of the symptoms with change in situational exposure. No change in current medications. Allergies - chronic - recommended pt to use allergy medication as prescribed. Pt has been counseled as to the appropriate use of the medication. Pt to call if allergy symptoms are not controlled with the medication. If using nasal spray, instructions as follows: Nasal spray- use twice daily, one spray per nostril twice daily, after 30 minutes, rinse out nose with saline spray.. Use opposite hand per nostril to spray in the nasal steroid allergy spray. CONTINUE TO ICE UNDER LEFT EYE AND UPPER LIP . Recent fall-laceration healed-contusion left [id number] further treatment indicated CONTINUE EXERCISE ELEVATE FEET DECREASE SODIUM/SALT IN YOUR DIET APPLY CREAM TO RASH TWICE DAILY REFILL MOMETASONE . Edema - pt has been advised to elevate legs to prevent dependent edema, compression has been recommended to help to naturally decrease peripheral edema. Diuretic use has been discussed and pt has been instructed in appropriate use of such medication as necessary to further attempt to reduce peripheral edema. Rash-cultured today in the office-start anti fungal/steroid cream combo-call if rash worsens or does not resolve . Actinic keratosis - cryotherapy of arms bilaterally - Anxiety - monitor symptoms - pt stopped her home medications. . .Well Adult - pt was counseled about diet, exercise, and encouraged to follow a heart healthy diet and increase activity level. The patient was instructed to RTC yearly for well adult exams and PRN for acute illnesses. The pt was also instructed to have yearly labs for check of cholesterol, thyroid, chem panel, CBC, and renal functioning. Chronic Depression and anxiety - the pt has symptoms of chronic anxiety and depression that have been fairly well controlled since the last office visit. The pt has expected periods of exacerbation with abatement of the symptoms with change in situational exposure. No change in current medications Back pain - recommended pt to continue with physical therapy for the next 2-3 weeks. . URI - Pt advised to increase fluids, vitamin C. Discussed natural and expected course of this diagnosis and need to alert me if symptoms do not follow expected course, or if any worse. RX sent to patient's pharmacy. Allergies - chronic - recommended pt to use allergy medication as prescribed. Pt has been counseled as to the appropriate use of the medication. Pt to call if allergy symptoms are not controlled with the medication. If using nasal spray, instructions as follows: Nasal spray- use twice daily, one spray per nostril twice daily, after 30 minutes, rinse out nose with saline spray.. Use opposite hand per nostril to spray in the nasal steroid allergy spray. . Sebaceous cyst of scalp - referral for removal - Pt to see Dr. Kulkarni for removal of the lesion. Seborrheic keratosis - no treatment needed at this time, the lesions are not inflamed.
--- NOTE | 2018-03-30 10:13 | Progress Note-Pre Operative ---
Pre-Operative Progress Note H&P Reviewed The H&P was reviewed, patient examined and no changes noted. Date Seen by Provider: March 17, 2018 Time Seen by Provider: 12:50 Date H&P Reviewed: Mar 30, 2018 Time H&P Reviewed: 10:12 Pre-Operative Diagnosis: Skin lesions FUAD CHANEY MD Mar 30, 2018 10:13 am
[2018-03-30 10:15] VITALS: BP 161/93
[2018-03-30] MEDS ORDERED: ceFAZolin 2 GM IV Premixed 50 ML ONE (10:27)
[2018-03-30] MEDS ORDERED: BUP/EPI 0.5% 1:200,000 (SENSORCAINE) 30 ML VIAL ONE (10:31)
[2018-03-30] MEDS ORDERED: LACTATED RINGERS 1,000 ML IV PRN ×2 (10:34)
[2018-03-30] MEDS ORDERED: ceFAZolin 2 GM IV Premixed 50 ML IV ONE (10:45)
[2018-03-30] MEDS ORDERED: PROPOFOL INJECTION 50 ML IV ONE (10:52)
[2018-03-30] MEDS ORDERED: LIDOCAINE PF 2% 5 ML (XYLOCAINE) VIAL ONE (10:52)
[2018-03-30] MEDS ORDERED: ONDANSETRON 4 MG/2 ML (SDV) Z0FRAN ONE (10:52)
[2018-03-30] MEDS ORDERED: fentaNYL INJECTION 100 MCG/2 ML AMP ONE (10:53)
[2018-03-30] MEDS ORDERED: MIDAZOLAM 2 MG/2 ML (VERSED) VIAL ONE (10:53)
[2018-03-30] MEDS ORDERED: TRAM50TA2 PO (13:51)
--- NOTE | 2018-03-30 13:51 | Discharge Inst-Simple/Standard ---
Discharge Inst-Standard Discharge Medications New, Converted or Re-Newed RX: RX on Chart Patient Instructions/Follow Up Plan of Care/Instructions/FU: Right hand to be kept elevated as much as possible. Dressing may be replaced with Band-Aids and 48 hours. Follow-up with my nurse in 2 weeks for suture removal Activity as Tolerated: Yes Discharge Diet: No Restrictions FUAD CHANEY MD Mar 30, 2018 1:51 pm
--- NOTE | 2018-03-30 14:05 | Operative Report ---
Operative Report Date of Procedure/Surgery Mar 30, 2018 Surgeon (s) FUAD CHANEY MD Shelter Director (s): N/A Post-Operative Diagnosis 1.Squamous cell carcinoma right upper arm 2. Skin lesion dorsum of right hand Procedure Performed Excision of squamous cell carcinoma right upper with frozen section Excision of skin lesion dorsum of right hand Description of Procedure Anesthesia Type: MAC Estimated blood loss (mL): Minimal Specimen(s) collected/removed squamous cell carcinoma from the right upper arm and the skin lesion from the dorsum of the right Description of the Procedure Indication for the procedures: This lady presented with a rapidly enlarging, raised lesion over the right distal upper arm, having the appearance of a carcinoma and a 1 cm lesion over the dorsum of the right hand. She was offered excision of the lesion over the upper arm with frozen section and simple excision of the lesion over the dorsum of the right and. Informed consent was obtained after reviewing the operative details and complications of hematoma and postoperative wound infection. Description of the procedures: 1. Excision of squamous cell carcinomaright upper arm: Ancef was administered intravenously as prophylaxis against wound infection. After adequate antiseptic preparation, local anesthesia was achieved using 0.5 percent Marcaine with epinephrine. An elliptical incision 5 cm in length I or centimeters in width was made and the lesion excised down to the subcutaneous tissue. It was oriented with silk sutures and sent for histological examination. The pathologist confirmed a squamous cell carcinoma with negative margins. The defect was then closed using interrupted 4-0 nylon sutures. A nonadherent dressing was then applied. 2.Excision of lesiondorsum of right hand: After establishing local anesthetic with 0.5 percent Marcaine and epinephrine, an elliptical incision centimeters in length by 1 cm in width was made and the lesion excised down to the subcutaneous tissue. It was oriented with silk sutures and sent for formal histologic examination. The defect was closed using 6-0 nylon in an interrupted fashion. She tolerated the procedures well and was taken to the recovery room in a stable condition. Findings of the Procedure See op report Allergies and Home Medications Allergies Coded Allergies: codeine (Verified Allergy, Unknown, 04/01/06) erythromycin base (Verified Allergy, Unknown, 03/28/18) meperidine (Verified Allergy, Unknown, 03/28/18) Home Medications Ibuprofen 200 Mg Tablet, 200 MG PO TID, (Reported) Tramadol HCl 50 Mg Tablet, 50 MG PO Q12H PRN for PAIN-MODERATE Prescribed by: FUAD CHANEY on 03/30/18 4537 Patient Home Medication List Home Medication List Reviewed: Yes FUAD CHANEY MD Mar 30, 2018 2:05 pm
[2018-03-30] MEDS ORDERED: fentaNYL INJECTION 100 MCG/2 ML AMP IVP PRN (14:15)
[2018-03-30 14:30] VITALS: BP 119/67
[2018-03-30 15:00] VITALS: BP 120/61
== END 2018-03-30 15:08 | disposition home or self-care (01) ==
LOC: SDC 09:55
PROVIDERS: ATTEND Surgery
DX: C44.622 Squamous cell carcinoma of skin of right upper limb, including shoulder (principal); D23.61 Other benign neoplasm of skin of right upper limb, including shoulder; F41.9 Anxiety disorder, unspecified; K21.9 Gastro-esophageal reflux disease without esophagitis
CPT/HCPCS: 87081; 88305; 88331; 88332

== ENCOUNTER → 2019-03-21 | Outpatient (CLI) | payer MEDICARE, OTHER ==
[~2019-03-21] MED LIST changes: +TRAM50TA2 PO
--- NOTE | 2019-03-21 13:00 | Diagnostic Imaging Report ---
Indication: Routine screening. Comparison is made with prior mammogram from 03/14/2018 and 03/12/2017. 2-D and 3-D bilateral screening mammography was performed with CAD. Scattered fibroglandular densities are identified bilaterally. No mass or malignant appearing microcalcifications are seen. There are scattered benign calcifications noted. Axillae are unremarkable. Impression: BI-RADS category 2 No mammographic features suspicious for malignancy are identified. Dictated by: Dictated on workstation # [id number]
== END ==
LOC: RAD 09:06
PROVIDERS: ATTEND Family Medicine
DX: Z12.31 Encounter for screening mammogram for malignant neoplasm of breast (principal)
CPT/HCPCS: 77067

== ENCOUNTER → 2020-04-02 | Outpatient (CLI) | payer MEDICARE, OTHER ==
[~2020-04-02] MED LIST changes: -TRAM50TA2 PO; +TRM50T PO
--- NOTE | 2020-04-02 14:27 | Diagnostic Imaging Report ---
INDICATION: Routine screening. COMPARISON: 03/21/2019 and 03/14/2018. TECHNIQUE: 2D and 3D bilateral screening mammography was performed with CAD. FINDINGS: Scattered fibroglandular densities are identified bilaterally. The parenchymal pattern is stable. No mass or malignant appearing microcalcifications are seen. There are benign calcifications bilaterally. The axillae are unremarkable. IMPRESSION: No mammographic features suspicious for malignancy are identified. ACR BI-RADS Category 2: Benign findings. Result letter will be mailed to the patient. Note: At least 10% of breast cancer is not imaged by mammography. Dictated by: Dictated on workstation # [id number]
== END ==
LOC: RAD 09:32
PROVIDERS: ATTEND Nurse Practitioner Family
DX: Z12.31 Encounter for screening mammogram for malignant neoplasm of breast (principal)
CPT/HCPCS: 77063; 77067

== ENCOUNTER → 2020-11-06 | Outpatient (CLI) | payer MEDICARE, OTHER | LOC: LABNPT 07:06 | PROVIDERS: ATTEND Family Medicine | DX: Z20.822 Contact with and (suspected) exposure to COVID-19 (principal) ==

== ENCOUNTER → 2021-01-06 | Outpatient (CLI) | payer MEDICARE, OTHER ==
--- NOTE | 2021-01-06 09:53 | Diagnostic Imaging Report ---
PROCEDURE: MRI lumbar spine. TECHNIQUE: Multiplanar, multisequence MRI of the lumbar spine was performed without contrast. INDICATION: Low back and left lower extremity pain. COMPARISON: MRI lumbar spine without contrast 03/19/2018. FINDINGS: Normal alignment. Vertebral body heights preserved. Normal bone marrow signal. No abnormal signal in the conus which terminates at L1. Normal morphology of the cauda equina. The visualized paravertebral soft tissues and pelvis are negative. L1-L2: Normal. L2-L3: Normal. L3-L4: Normal. L4-L5: Left subarticular disc extrusion results in severe left lateral recess narrowing where it compresses the traversing left L5 nerve root. No substantial spinal canal or neural foraminal narrowing. Mild bilateral facet arthropathy. L5-S1: Normal. IMPRESSION: 1. Left subarticular disc extrusion at L4-L5 results in severe left lateral recess narrowing where it compresses the traversing left L5 nerve root. 2. No other substantial spondylotic change of neural impingement. No acute osseous findings. Dictated by: Dictated on workstation # [id number]
--- NOTE | 2021-01-06 10:35 | Diagnostic Imaging Report ---
PROCEDURE: MRI left joint lower extremity without contrast. TECHNIQUE: Multiplanar, multisequence non contrast-enhanced MRI of the left lower extremity was accomplished. INDICATION: Chronic low back pain and left hip pain. EXAMINATION: MRI of the left lower extremity from 01/06/2021 FINDINGS: There is a linear focus of T2 hyperintensity along the anterior superior labrum best seen on sagittal sequence image #18 this is suspicious for a labral tear. However, post-arthrogram imaging is recommended for better characterization. There is mild heterogeneity and thinning of the cartilage in the joint space. The osseous structures demonstrate no acute abnormalities. Visualized tendons about both hips unremarkable. There is no significant joint effusion. Intrapelvic structures unremarkable. IMPRESSION: 1. Suspicion of an anterior superior labral tear of the left hip, however limited evaluation due to lack of contrast. 2. Remaining visualized structures unremarkable. Dictated by: Dictated on workstation # [id number]
== END ==
LOC: RAD 08:45
PROVIDERS: ATTEND Family Medicine
DX: M51.26 Other intervertebral disc displacement, lumbar region (principal); M48.061 Spinal stenosis, lumbar region without neurogenic claudication
CPT/HCPCS: 72148; 73721

== ENCOUNTER 2021-02-18 08:32 | Outpatient (RCR) | payer MEDICARE, OTHER | END 2021-02-20 | disposition home or self-care (01) | PROVIDERS: ATTEND Family Medicine | DX: M54.32 Sciatica, left side (principal); R29.898 Other symptoms and signs involving the musculoskeletal system ==

== ENCOUNTER 2021-04-02 10:00 | Outpatient (RCR) | payer MEDICARE, OTHER | END 2021-04-02 11:44 | disposition home or self-care (01) | PROVIDERS: ATTEND Family Medicine | DX: M54.32 Sciatica, left side (principal); R29.898 Other symptoms and signs involving the musculoskeletal system ==

== ENCOUNTER → 2021-04-04 | Outpatient (CLI) | payer MEDICARE, OTHER ==
--- NOTE | 2021-04-04 10:06 | Diagnostic Imaging Report ---
Digital mammogram. Bilateral screening This study was compared to the prior exams of 04/02/2020, 03/21/2019 and 03/14/2018. At this time there are no current complaints. The current study was also evaluated with a Computer Aided Detection (CAD) system. FINDINGS: The fibroglandular tissue in both breasts is heterogeneously dense. This does limit the sensitivity of this exam. Overall, there does not appear to have been any significant change when compared to the prior study. No primary or secondary sign of malignancy is noted. IMPRESSION: There is no radiographic evidence for malignancy. ACR BI-RADS Category 1: Negative. Result letter will be mailed to the patient. Note: At least 10% of breast cancer is not imaged by mammography. Dictated by: Dictated on workstation # [id number]
== END ==
LOC: RAD 09:03
PROVIDERS: ATTEND Nurse Practitioner Family
DX: Z12.31 Encounter for screening mammogram for malignant neoplasm of breast (principal)
CPT/HCPCS: 77063; 77067

== ENCOUNTER → 2021-05-15 | Outpatient (CLI) | payer MEDICARE, OTHER ==
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
== END ==
LOC: RAD 09:22
PROVIDERS: ATTEND Family Medicine
DX: M41.34 Thoracogenic scoliosis, thoracic region (principal); V87.8XXA Person injured in other specified noncollision transport accidents involving motor vehicle (traffic), initial encounter
CPT/HCPCS: 72072; 72100; 73502

== ENCOUNTER → 2021-07-31 | Outpatient (CLI) | payer MEDICARE, OTHER | LOC: CARD 09:31 | PROVIDERS: ATTEND Internal Medicine Cardiovascular Disease | DX: I35.0 Nonrheumatic aortic (valve) stenosis (principal); I11.9 Hypertensive heart disease without heart failure | CPT/HCPCS: 93306 ==

== ENCOUNTER → 2022-04-08 | Outpatient (CLI) | payer MEDICARE, OTHER ==
--- NOTE | 2022-04-08 14:19 | Diagnostic Imaging Report ---
INDICATION: Routine screening. Comparison is made prior exam from 04/04/2021 and 04/02/2020. CAD is utilized. The current study was also evaluated with a Computer Aided Detection (CAD) system. Both breasts are heterogeneously dense, limiting the sensitivity of mammography. The parenchymal pattern is stable. No mass or malignant-appearing microcalcifications are seen. Axillae are unremarkable. IMPRESSION: BI-RADS Category 1 No mammographic features suspicious for malignancy are identified. ACR BI-RADS Category 1: Negative. Result letter will be mailed to the patient. Note: At least 10% of breast cancer is not imaged by mammography. Dictated by: Dictated on workstation # [id number]
== END ==
LOC: RAD 09:45
PROVIDERS: ATTEND Nurse Practitioner Family
DX: Z12.31 Encounter for screening mammogram for malignant neoplasm of breast (principal)
CPT/HCPCS: 77063; 77067

== ENCOUNTER → 2022-04-23 | Outpatient (RCR) | payer MEDICARE, OTHER | END | disposition home or self-care (01) | PROVIDERS: ATTEND Family Medicine Sports Medicine | DX: M70.62 Trochanteric bursitis, left hip (principal) ==

== ENCOUNTER 2022-05-21 08:56 | Outpatient (RCR) | payer MEDICARE, OTHER | END 2022-05-24 | disposition home or self-care (01) | PROVIDERS: ATTEND Family Medicine Sports Medicine | DX: M70.62 Trochanteric bursitis, left hip (principal) ==

== ENCOUNTER → 2022-06-16 | Outpatient (CLI) | payer MEDICARE, OTHER ==
--- NOTE | 2022-06-16 12:21 | Diagnostic Imaging Report ---
INDICATION: Postmenopausal screening. COMPARISON: None. FINDINGS: AP Spine L1-L4: [BMD (g/cm2): 1.030] [T-Score: -1.4] [Z-Score: 0.1] [BMD Previous: NA] [BMD % Change: NA] LT Hip Neck: [BMD (g/cm2): 0.912] [T-Score: -0.9] [Z-Score: 0.7] LT Hip Total: [BMD (g/cm2):1.037] [T-Score:0.2] [Z-Score: 1.6] [BMD Previous: NA] [BMD % Change: NA] RT Hip Neck: [BMD (g/cm2):0.926] [T-Score:-0.8] [Z-Score:0.8] RT Hip Total: [BMD (g/cm2):1.051] [T-score:0.3] [Z-Score:1.7] [BMD Previous:NA] [BMD % Change:NA] *Indicates significant change from prior examination based on 95% confidence level. World Health Organization criteria for BMD interpretation classify patients as Normal (T-score at or above -1.0), Osteopenic (T-score between -1.0 and -2.5) or Osteoporotic (T-score at or below -2.5). LIMITATIONS AND MODIFICATION: None. FRACTURE RISK (FRAX SCORE): The ten year probability of (%): Major Osteoporotic Fracture: [NA] Hip Fracture: [NA] IMPRESSION: 1. Osteopenia (Low bone mass). 2. Baseline examination. None 3. See below National Osteoporosis Foundation guidelines on when to potentially initiate pharmacologic therapy. Based on the National Osteoporosis Foundation Guidelines, pharmacologic treatment should be initiated in any of the following, unless clinical conditions suggest otherwise: * Any patient with prior fragility fracture of the hip or vertebrae. A spine fracture indicates 5X risk for subsequent spine fracture and 2X risk for subsequent hip fracture. * Osteoporosis (T-score <-2.5). * Postmenopausal women and men age 50 and older with low bone mass/osteopenia (T-score between -1.0 and -2.5) by DXA and 10-year major osteoporotic fracture greater than 20% or a 10-year probability of hip fracture greater than 3%. These fracture risks are supplied above in the FRAX score, if applicable. * Clinician judgement and/or patient preferences may indicate treatment for people with 10-year fracture probabilities above or below these levels. Dictated by: Dictated on workstation # [id number]
== END ==
LOC: RAD 09:00
PROVIDERS: ATTEND Nurse Practitioner Family
DX: Z13.820 Encounter for screening for osteoporosis (principal); M85.80 Other specified disorders of bone density and structure, unspecified site; Z78.0 Asymptomatic menopausal state
CPT/HCPCS: 77080

== ENCOUNTER 2022-06-23 09:48 | Outpatient (RCR) | payer MEDICARE, OTHER | END 2022-06-24 | disposition home or self-care (01) | PROVIDERS: ATTEND Family Medicine Sports Medicine | DX: M70.62 Trochanteric bursitis, left hip (principal) ==

== ENCOUNTER → 2022-07-24 | Outpatient (RCR) | payer MEDICARE, OTHER | END | disposition home or self-care (01) | PROVIDERS: ATTEND Family Medicine Sports Medicine | DX: M70.62 Trochanteric bursitis, left hip (principal) ==

== ENCOUNTER → 2023-02-08 | Outpatient (CLI) | payer MEDICARE, OTHER | LOC: CARD 11:00 | PROVIDERS: ATTEND Internal Medicine Cardiovascular Disease | DX: I11.9 Hypertensive heart disease without heart failure (principal) | CPT/HCPCS: 93306 ==

== ENCOUNTER → 2023-03-08 | Outpatient (CLI) | payer MEDICARE, OTHER ==
--- NOTE | 2023-03-08 19:05 | Diagnostic Imaging Report ---
INDICATION: Hip pain COMPARISON: 02/16/2018 TECHNIQUE: 5 radiographs of the pelvis and bilateral hips dated 03/08/2023. FINDINGS: Mild degenerative changes within the partially visualized lower lumbar spine. The sacroiliac joints and pubic symphysis are intact. Hyperdensities within the lower pelvis extending to the right of midline are again identified and unchanged from the prior examination. No acute fracture or dislocation. No destructive osseous process. Minimal degenerative changes within the bilateral hips. The bilateral femoral heads maintain a normal shape and contour. IMPRESSION: No acute osseous abnormality with low-grade degenerative changes present. Stable hyperdensities within the lower pelvis extending into the right. These are unchanged since at least 2018 and could relate to prior postsurgical or traumatic changes. Dictated by: Dictated on workstation # [id number]
== END ==
LOC: RAD 12:59
PROVIDERS: ATTEND Family Medicine
DX: M25.551 Pain in right hip (principal); M25.552 Pain in left hip
CPT/HCPCS: 73523

== ENCOUNTER 2023-04-20 08:33 | Outpatient (RCR) | payer MEDICARE, OTHER | END 2023-04-23 | disposition home or self-care (01) | PROVIDERS: ATTEND Family Medicine | DX: M25.552 Pain in left hip (principal); M25.551 Pain in right hip ==

== ENCOUNTER 2023-04-28 10:29 | Outpatient (RCR) | payer MEDICARE, OTHER | END 2023-05-24 | disposition home or self-care (01) | PROVIDERS: ATTEND Family Medicine | DX: M25.552 Pain in left hip (principal); M25.551 Pain in right hip ==

== ENCOUNTER → 2023-05-03 | Outpatient (CLI) | payer MEDICARE, OTHER ==
--- NOTE | 2023-05-03 13:12 | Diagnostic Imaging Report ---
INDICATION: Routine screening. COMPARISON: 04/08/2022 and 04/04/2021. TECHNIQUE: 2D and 3D bilateral screening mammography was performed with CAD. FINDINGS: Both breasts are heterogeneously dense, limiting the sensitivity of mammography. The parenchymal pattern is stable. No mass or malignant-appearing microcalcifications are identified. There are scattered benign calcifications in both breasts. The axillae are unremarkable. IMPRESSION: No mammographic features suspicious for malignancy are identified. ACR BI-RADS Category 2: Benign findings. Result letter will be mailed to the patient. Note: At least 10% of breast cancer is not imaged by mammography. Dictated by: Dictated on workstation # [id number]
== END ==
LOC: RAD 10:26
PROVIDERS: ATTEND Physician Assistant
DX: Z12.31 Encounter for screening mammogram for malignant neoplasm of breast (principal)
CPT/HCPCS: 77063; 77067